=== PATIENT | male | born 1950 | race Caucasian/White ===

== ENCOUNTER 2018-01-31 17:26 | Emergency (ER) | payer MEDICARE, BC ==
[2018-01-31 17:46] VITALS: BP 62/33
[2018-01-31] MEDS ORDERED: Sodium Chloride 0.9% 1,000 ML IV ONE (17:59)
[2018-01-31] MEDS ORDERED: Sodium Chloride 0.9% 2,000 ML IV ONE (18:00)
[2018-01-31] MEDS ORDERED: Metoclopramide 10 MG/2 ML SDV IVPUSH ONE (18:01)
[2018-01-31] MEDS ORDERED: Piperacillin/Tazobactam/Dext 3.375 GM in Premix Bag 1 BAG IV ONE (18:27)
[2018-01-31] MEDS ORDERED: NS + KCl 20mEq/L 1,000 ML IV SCH (18:45)
[2018-01-31] MEDS ORDERED: Potassium Chloride 20 MEQ in Premix Bag 1 BAG IV ONE (18:45)
[2018-01-31] MEDS ORDERED: Morphine 2 MG/ML Syringe IVPUSH ONE (18:49)
--- NOTE | 2018-01-31 19:40 | EDM.PDOC ---
ED HPI GENERAL MEDICAL PROBLEM - General Chief Complaint: Abdominal Pain Stated Complaint: DEHYDRATED?? Time Seen by Provider: 01/31/18 17:35 Source of Information: Reports: Patient, Family, RN History Limitations: Reports: No Limitations - History of Present Illness INITIAL COMMENTS - FREE TEXT/NARRATIVE: 67-year-old male presents to the emergency room brought in by his with complaints of severe abdominal pain. He was diaphoretic and hypotensive upon arrival. He been complaining of severe abdominal pain over the last 48-72 hours. Reports the pain is sharp and diffuse and has severe pain with any type of movement. He has had nausea and vomiting over the last 48 hours. He has had some diarrhea today. He denies any fever or chills. He denies any blood in his stool or vomit. His pain is constant and progressive. He denies any shortness of breath or chest pain, he denies any headaches or syncopal episode. Past medical history is pertinent with hypertension, insulin-dependent diabetic and depression. He is a current smoker. He's had a prior cholecystectomy. He still has his appendix. His states that he has lost 20 pounds in the last year without trying. He's been having some stomach upset for the last 3 weeks but again this became severe the last 48-72 hours. Onset: Gradual Onset Date: 01/29/18 Duration: Day(s):, Getting Worse Location: Reports: Abdomen Quality: Reports: Stabbing Severity: Severe Improves with: Reports: None Worsens with: Reports: Movement Associated Symptoms: Reports: Diaphoresis, Loss of Appetite, Nausea/Vomiting, Weakness Abdominal Pain Score (Numeric/FACES): 7 - Related Data Allergies Allergy/AdvReac Type Severity Reaction Status Date / Time iodine Allergy Rash Verified 01/31/18 17:46 Home Meds: Home Meds metFORMIN HCl [Metformin HCl] 1 tab PO BID 09/18/14 [History] LORazepam [Ativan] 1 mg PO Q6H PRN 05/26/15 [History] Lisinopril 40 mg PO DAILY 05/26/15 [History] Hydrochlorothiazide 25 mg PO DAILY 01/19/16 [History] Escitalopram [Lexapro] 20 mg PO DAILY 01/31/18 [History] Insulin Detemir [Levemir Flextouch] 5 units SQ BEDTIME 01/31/18 [History] Past Medical History HEENT History: Reports: Cataract, Impaired Vision Other HEENT History: eye disease - pars plantis Cardiovascular History: Reports: High Cholesterol, Hypertension Respiratory History: Reports: Bronchitis, Recurrent Gastrointestinal History: Reports: Chronic Constipation, Hiatal Hernia Genitourinary History: Reports: Other (See Below) Other Genitourinary History: possible kidney stone but never got treatment Musculoskeletal History: Reports: Other (See Below) Other Musculoskeletal History: Right shoulder pain Psychiatric History: Reports: Anxiety Endocrine/Metabolic History: Reports: Diabetes, Type II Hematologic History: Reports: None - Infectious Disease History Infectious Disease History: Reports: Chicken Pox - Past Surgical History HEENT Surgical History: Reports: Cataract Surgery GI Surgical History: Reports: Hernia Repair/Other Musculoskeletal Surgical History: Reports: Carpal Tunnel Social & Family History - Family History Cardiac: Reports: High Cholesterol, Hypertension Oncologic: Reports: Brain, Breast ED ROS GENERAL - Review of Systems Review Of Systems: See Below Constitutional: Reports: Weakness, Diaphoresis HEENT: Reports: No Symptoms Respiratory: Reports: No Symptoms Cardiovascular: Reports: Blood Pressure Problem. Denies: Chest Pain, Palpitations Endocrine: Reports: High Glucose GI/Abdominal: Reports: Abdominal Pain, Diarrhea, Decreased Appetite, Nausea, Vomiting. Denies: Black Stool, Bloody Stool, Hematemesis : Denies: Flank Pain, Hematuria Musculoskeletal: Reports: No Symptoms Skin: Reports: Diaphoresis, Change in Color Neurological: Reports: No Symptoms Psychiatric: Reports: No Symptoms Hematologic/Lymphatic: Reports: No Symptoms Immunologic: Reports: No Symptoms ED EXAM, GI/ABD - Physical Exam Exam: See Below Exam Limited By: No Limitations General Appearance: Alert, WD/WN, Severe Distress Eyes: Bilateral: EOMI Ears: Hearing Grossly Normal Nose: Normal Inspection Throat/Mouth: Normal Voice, No Airway Compromise Head: Atraumatic Neck: Normal Inspection, Supple. No: Carotid Bruit Respiratory/Chest: No Respiratory Distress, Lungs Clear Cardiovascular: Regular Rate, Rhythm GI/Abdominal Exam: Guarding, Rigid, Rebound, Tender Back Exam: Normal Inspection Extremities: Normal Inspection, Slow Capillary Refill. No: Pedal Edema Neurological: Alert, Oriented, No Motor/Sensory Deficits Psychiatric: Anxious Skin Exam: Diaphoretic Lymphatic: No Adenopathy Course - Vital Signs Last Recorded V/S: Last Vital Signs Temp 95.8 F 01/31/18 17:41 Pulse 74 01/31/18 17:41 Resp 16 01/31/18 17:41 BP 62/33 L 01/31/18 17:41 Pulse Ox 93 L 01/31/18 17:41 - Orders/Labs/Meds Orders: Active Orders 24 hr Category Date Time Status Davies Catheter Insertion [Insert Urinary Catheter] [OM. Care 01/31/18 18:45 Ordered PC] Q24H Urinary Catheter Assessment [RC] ASDIRECTED Care 01/31/18 18:43 Active Abdomen Pelvis wo Cont [CT] Stat Exams 01/31/18 17:55 Taken CULTURE BLOOD [BC] Stat Lab 01/31/18 18:35 Ordered CULTURE BLOOD [BC] Stat Lab 01/31/18 18:45 Received NS + KCl 20mEq/L [Normal Saline with 20 mEq KCl] 1,000 Med 01/31/18 18:45 Active ml IV ASDIRECTED Potassium Chloride [KCL 20 MEQ in Water 100 ML] 20 meq Med 01/31/18 18:45 Active Premix Bag 1 bag IV ONETIME Vancomycin 1 gm Med 01/31/18 18:26 Active Sodium Chloride 0.9% [Normal Saline] 250 ml IV ONETIME Blood Culture x2 Reflex Set [OM.PC] Stat Oth 01/31/18 18:35 Ordered Medication Orders Vancomycin HCl 1 gm/ Sodium (Chloride) 250 mls @ 167 mls/hr IV ONETIME ONE Stop: 01/31/18 19:55 Last Admin: 01/31/18 19:00 Dose: 167 mls/hr Potassium Chloride/Sodium Chloride (Normal Saline With 20 Meq Kcl) 1,000 mls @ 150 mls/hr IV ASDIRECTED FELICIA Potassium Chloride 20 meq/ (Premix) 100 mls @ 50 mls/hr IV ONETIME ONE Stop: 01/31/18 20:44 Labs: Laboratory Tests 01/31/18 01/31/18 01/31/18 Range/Units 17:33 17:33 17:33 WBC 19.4 H (5.0-10.0) 10^3/uL RBC 5.14 (4.50-6.00) 10^6/uL Hgb 14.9 (13.0-17.0) g/dL Hct 43.8 (40.0-52.0) % MCV 85.2 (82.0-92.0) fL MCH 29.0 (27.0-31.0) pg MCHC 34.0 (32.0-36.0) g/dL RDW 12.7 (11.5-14.5) % Plt Count 384 H (150-300) 10^3/uL MPV 8.5 (7.4-10.4) fL Neut % (Auto) 81.0 H (50.0-70.0) % Lymph % (Auto) 9.8 L (20.0-40.0) % [place] % (Auto) 8.8 H (2.0-8.0) % Eos % (Auto) 0.2 L (1.0-3.0) % Baso % (Auto) 0.2 (0.0-1.0) % Neut # (Auto) 15.8 H (2.5-7.0) 10^3/uL Lymph # (Auto) 1.9 (1.0-4.0) 10^3/uL [place] # (Auto) 1.7 H (0.1-0.8) 10^3/uL Eos # (Auto) 0.0 L (0.1-0.3) 10^3/uL Baso # (Auto) 0.0 (0.0-0.1) 10^3/uL ESR 21 H (0-15) mm/hr Sodium 142 (136-145) mmol/L Potassium 2.8 L (3.3-5.3) mmol/L Chloride 98 (98-115) mmol/L Carbon Dioxide 32.4 H (21.0-32.0) mmol/L BUN 35 H (6-25) mg/dL Creatinine 2.35 H (0.51-1.17) mg/dL Est Cr Clr Drug Dosing 28.28 mL/min Estimated GFR (MDRD) 28 mL/min Glucose 204 H (70-110) mg/dL Lactic Acid (0.4-2.0) mmol/L Calcium 10.6 H (8.7-10.3) mg/dL Creatine Kinase 144 (26-276) U/L CK-MB (CK-2) 0.70 (0.00-4.30) ng/mL Troponin I 0.06 (0.00-0.070) ng/mL Amylase 63 (25-125) U/L Lipase 135 (73-393) U/L Specimen Type Urine Color (YELLOW) Urine Appearance (CLEAR) Urine pH (5.0-9.0) Ur Specific [place] (1.005-1.030) Urine Protein (NEGATIVE) mg/dL Urine Glucose (UA) (NEGATIVE) mg/dL Urine Ketones (NEGATIVE) mg/dL Urine Occult Blood (NEGATIVE) Urine Nitrite (NEGATIVE) Urine Bilirubin (NEGATIVE) Urine Urobilinogen (0.2-1.0) E.U./dL Ur Leukocyte Esterase (NEGATIVE) Urine RBC /HPF Urine WBC /HPF Ur Epithelial Cells /LPF Urine Bacteria (NONE TO FEW) /HPF Hyaline Casts (NEGATIVE) /LPF Urine Mucus (NEGATIVE) /LPF Urine Other 01/31/18 01/31/18 Range/Units 17:33 18:45 WBC (5.0-10.0) 10^3/uL RBC (4.50-6.00) 10^6/uL Hgb (13.0-17.0) g/dL Hct (40.0-52.0) % MCV (82.0-92.0) fL MCH (27.0-31.0) pg MCHC (32.0-36.0) g/dL RDW (11.5-14.5) % Plt Count (150-300) 10^3/uL MPV (7.4-10.4) fL Neut % (Auto) (50.0-70.0) % Lymph % (Auto) (20.0-40.0) % [place] % (Auto) (2.0-8.0) % Eos % (Auto) (1.0-3.0) % Baso % (Auto) (0.0-1.0) % Neut # (Auto) (2.5-7.0) 10^3/uL Lymph # (Auto) (1.0-4.0) 10^3/uL [place] # (Auto) (0.1-0.8) 10^3/uL Eos # (Auto) (0.1-0.3) 10^3/uL Baso # (Auto) (0.0-0.1) 10^3/uL ESR (0-15) mm/hr Sodium (136-145) mmol/L Potassium (3.3-5.3) mmol/L Chloride (98-115) mmol/L Carbon Dioxide (21.0-32.0) mmol/L BUN (6-25) mg/dL Creatinine (0.51-1.17) mg/dL Est Cr Clr Drug Dosing mL/min Estimated GFR (MDRD) mL/min Glucose (70-110) mg/dL Lactic Acid 5.4 H (0.4-2.0) mmol/L Calcium (8.7-10.3) mg/dL Creatine Kinase (26-276) U/L CK-MB (CK-2) (0.00-4.30) ng/mL Troponin I (0.00-0.070) ng/mL Amylase (25-125) U/L Lipase (73-393) U/L Specimen Type Urincc Urine Color Yellow (YELLOW) Urine Appearance Clear (CLEAR) Urine pH 7.0 (5.0-9.0) Ur Specific [place] 1.020 (1.005-1.030) Urine Protein 100 H (NEGATIVE) mg/dL Urine Glucose (UA) Negative (NEGATIVE) mg/dL Urine Ketones Trace H (NEGATIVE) mg/dL Urine Occult Blood Trace-intact H (NEGATIVE) Urine Nitrite Negative (NEGATIVE) Urine Bilirubin Small H (NEGATIVE) Urine Urobilinogen 0.2 (0.2-1.0) E.U./dL Ur Leukocyte Esterase Negative (NEGATIVE) Urine RBC 5-10 H /HPF Urine WBC 0-5 /HPF Ur Epithelial Cells Not seen /LPF Urine Bacteria Occasional (NONE TO FEW) /HPF Hyaline Casts Few H (NEGATIVE) /LPF Urine Mucus Occasional H (NEGATIVE) /LPF Urine Other Meds: Medications Generic Name Dose Route Start Last Admin Trade Name Freq PRN Reason Stop Dose Admin Vancomycin HCl 1 gm/ Sodium 250 mls @ 167 mls/hr 01/31/18 18:26 01/31/18 19: 00 Chloride IV 01/31/18 19:55 167 mls/hr ONETIME ONE Administration Potassium Chloride/Sodium Chloride 1,000 mls @ 150 mls/hr 01/31/18 18:45 Normal Saline With 20 Meq Kcl IV ASDIRECTED FELICIA Potassium Chloride 20 meq/ 100 mls @ 50 mls/hr 01/31/18 18:45 Premix IV 01/31/18 20:44 ONETIME ONE Discontinued Medications Generic Name Dose Route Start Last Admin Trade Name Shruthi PRN Reason Stop Dose Admin Sodium Chloride 1,000 mls @ 2,000 mls/hr 01/31/18 17:59 01/31/18 17:33 Normal Saline IV 01/31/18 18:28 2,000 mls/hr .BOLUS ONE Administration Piperacillin/Tazobactam/ 50 mls @ 100 mls/hr 01/31/18 18:27 Dextrose 3.375 gm/ Premix IV 01/31/18 18:56 ONETIME ONE Metoclopramide HCl 10 mg 01/31/18 18:01 01/31/18 19:04 Reglan IVPUSH 01/31/18 18:02 10 mg ONETIME ONE Administration Morphine Sulfate 2 mg 01/31/18 18:49 01/31/18 19:04 Morphine IVPUSH 01/31/18 18:50 1 mg ONETIME ONE Administration - Radiology Interpretation Free Text/Narrative:: 1. Small volume free air free fluid compatible with a perforated viscus. Suggested perforated distal gastric ulcer. 2. Mild ileus with moderate gastric distention and mild small bowel dilation. CT Results Date: 01/31/18 CT Results Time: 17:00 - Re-Assessments/Exams Free Text/Narrative Re-Assessment/Exam: 01/31/18 19:46 2 liter of fluids on pressure bag given. Patients BP improved to 110/54. Patient 's diaphoresis resolved. Abdominal pain remained a 7 out of 10. He was given 1 mg IV morphine. 2 L of O2 nasal cannula was placed. He was given 1 mg of vancomycin after blood cultures were obtained. Zosyn and KCL were ordered. Patient's clothes were removed Davies was placed for close IO monitoring. Radiologist called regarding free air-fluid compatible with a perforated viscera 's suggestion of a perforated distal gastric ulcer. Transfer was already in route at this time and helicopter was in air. Patient's blood pressure remained stable although his condition was severe. Departure - Departure Time of Disposition: 19:30 Disposition: DC/Tfer to [facility] Clinical Impression: Perforated abdominal viscus Sepsis Qualifiers: Sepsis type: sepsis due to unspecified organism Qualified Code(s): A41.9 - Sepsis, unspecified organism - Discharge Information Instructions: Peptic Ulcer, Abdominal Pain, Adult Referrals: [place] Ch[place] MD [Primary Care Provider] - Forms: ED Department Discharge, Interfacility Transfer EMTALA - My Orders Last 24 Hours: My Active Orders 01/31/18 17:55 Abdomen Pelvis wo Cont [CT] Stat 01/31/18 18:26 Vancomycin 1 gm Sodium Chloride 0.9% [Normal Saline] 250 ml IV ONETIME 01/31/18 18:35 CULTURE BLOOD [BC] Stat Blood Culture x2 Reflex Set [OM.PC] Stat 01/31/18 18:43 Urinary Catheter Assessment [RC] ASDIRECTED 01/31/18 18:45 Davies Catheter Insertion [Insert Urinary Catheter] [OM.PC] Q24H CULTURE BLOOD [BC] Stat NS + KCl 20mEq/L [Normal Saline with 20 mEq KCl] 1,000 ml IV ASDIRECTED Potassium Chloride [KCL 20 MEQ in Water 100 ML] 20 meq Premix Bag 1 bag IV ONETIME - Assessment/Plan Last 24 Hours: My Active Orders 01/31/18 17:55 Abdomen Pelvis wo Cont [CT] Stat 01/31/18 18:26 Vancomycin 1 gm Sodium Chloride 0.9% [Normal Saline] 250 ml IV ONETIME 01/31/18 18:35 CULTURE BLOOD [BC] Stat Blood Culture x2 Reflex Set [OM.PC] Stat 01/31/18 18:43 Urinary Catheter Assessment [RC] ASDIRECTED 01/31/18 18:45 Davies Catheter Insertion [Insert Urinary Catheter] [OM.PC] Q24H CULTURE BLOOD [BC] Stat NS + KCl 20mEq/L [Normal Saline with 20 mEq KCl] 1,000 ml IV ASDIRECTED Potassium Chloride [KCL 20 MEQ in Water 100 ML] 20 meq Premix Bag 1 bag IV ONETIME Assessment:: 1. Acute abdomen. 2. Free air compatible with a perforated viscus probable perforated distal gastric ulcer 3. Sepsis 4. Mild ileus with moderate gastric distention and mild small bowel dilation. Plan: 1. Patient was transferred by air to [facility]. Blood pressures were stable condition was still serious. 2 IV were placed. He had a total of 2 L of normal saline run in a pressure bag. He was given 1 g of vancomycin and was to be started on potassium replacement KCL 20 mEq. Zosyn 3.375 mg was ordered. Davies was placed for close INR monitoring and the patient is closed were removed he was Warm with a blanket patient was stable at time of transfer by helicopter to [place].
== END 2018-01-31 19:40 | disposition critical access hospital (66) ==
LOC: KA.ED 17:26
DX: A41.9 Sepsis, unspecified organism (principal); K63.1 Perforation of intestine (nontraumatic); E11.9 Type 2 diabetes mellitus without complications; E78.00 Pure hypercholesterolemia, unspecified; I10 Essential (primary) hypertension; Z91.048 Other nonmedicinal substance allergy status; Z79.4 Long term (current) use of insulin; Z79.899 Other long term (current) drug therapy
CPT/HCPCS: 36415; 51702; 74176; 80048; 81001; 82150; 82550; 82553; 83605; 83690; 84484; 85025; 85651; 87040; 96361; 96365; 96375; 99285; J2270; J2765; J3370; J7030; J7050

== ENCOUNTER 2021-03-21 10:28 | Inpatient (IN) | payer MEDICARE, BC ==
[2021-03-21] MEDS ORDERED: Sodium Chloride 0.9% 10 ML Syringe FLUSH PRN (10:32)
[2021-03-21] MEDS ORDERED: Sodium Chloride 0.9% 1,000 ML IV ONE (10:32)
[2021-03-21] MEDS ORDERED: Acetaminophen 500 MG Tab PO ONE (10:40)
--- NOTE | 2021-03-21 10:40 | EDM.PDOC ---
ED HPI GENERAL MEDICAL PROBLEM - General Chief Complaint: Respiratory Problem Stated Complaint: CHEST PAIN,COUGH,FEVER,CHILLS Time Seen by Provider: 03/21/21 10:28 Source of Information: Reports: Patient, Family History Limitations: Reports: No Limitations - History of Present Illness INITIAL COMMENTS - FREE TEXT/NARRATIVE: 70 YO WM PRESENTS TO ER COMPLAINING OF FEVER/CHILLS, COUGH/CONGESTION AND INTERMITTENT CHEST PAIN AND SHORTNESS OF BREATH WHICH BEGAN 2.5 WEEKS AGO. PT REPORTS HE CAME TO ER TODAY DUE TO HIS URGING HIM TO DO SO. PT REPORTS PRODUCTIVE COUGH WITHOUT HEMOPTYSIS. PT REPORTS NO KNOWN COVID EXPOSURES AND HAS BEEN IMMUNIZED EARLIER THIS YEAR. PT REPORTS BILATERAL INTERMITTENT CHEST PAIN AND ASSOCIATED DYSPNEA. PT DENIES NAUSEA/VOMITING. PT REPORTS DECREASED APPETITE BUT HAS BEEN DRINKING FLUIDS WITHOUT DIFFICULTY. PT IS IDDM AND HASN'T CHECKED HIS BLOOD SUGAR IN 2 DAYS. 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 Chest Pain Score (Numeric/FACES): 6 - Related Data Allergies Allergy/AdvReac Type Severity Reaction Status Date / Time iodine Allergy Rash Verified 03/21/21 11:39 Home Meds: Home Meds metFORMIN HCl [Metformin HCl] 1 tab PO BID 09/18/14 [History] LORazepam [Ativan] 1 mg PO Q6H PRN 05/26/15 [History] Lisinopril 40 mg PO DAILY 05/26/15 [History] Hydrochlorothiazide 25 mg PO DAILY 01/19/16 [History] Escitalopram [Lexapro] 20 mg PO DAILY 01/31/18 [History] Insulin Detemir [Levemir Flextouch] 5 units SQ BEDTIME 01/31/18 [History] Past Medical History HEENT History: Reports: Cataract, Impaired Vision Other HEENT History: eye disease - pars plantis Cardiovascular History: Reports: High Cholesterol, Hypertension Respiratory History: Reports: Bronchitis, Recurrent Gastrointestinal History: Reports: Chronic Constipation, Hiatal Hernia Genitourinary History: Reports: Other (See Below) Other Genitourinary History: possible kidney stone but never got treatment Musculoskeletal History: Reports: Other (See Below) Other Musculoskeletal History: Right shoulder pain Psychiatric History: Reports: Anxiety Endocrine/Metabolic History: Reports: Diabetes, Type II Hematologic History: Reports: None - Infectious Disease History Infectious Disease History: Reports: Chicken Pox - Past Surgical History HEENT Surgical History: Reports: Cataract Surgery GI Surgical History: Reports: Hernia Repair/Other Musculoskeletal Surgical History: Reports: Carpal Tunnel Social & Family History - Family History Cardiac: Reports: High Cholesterol, Hypertension Oncologic: Reports: Brain, Breast ED ROS GENERAL - Review of Systems Review Of Systems: See Below Constitutional: Reports: Fever, Chills, Malaise, Weakness, Decreased Appetite HEENT: Reports: No Symptoms Respiratory: Reports: Shortness of Breath, Cough Cardiovascular: Reports: Chest Pain Endocrine: Reports: No Symptoms GI/Abdominal: Reports: No Symptoms : Reports: No Symptoms Musculoskeletal: Reports: No Symptoms Skin: Reports: No Symptoms Neurological: Reports: No Symptoms Psychiatric: Reports: No Symptoms Hematologic/Lymphatic: Reports: No Symptoms Immunologic: Reports: No Symptoms ED EXAM, GENERAL - Physical Exam Exam: See Below Exam Limited By: No Limitations General Appearance: Alert, WD/WN, Mild Distress Eye Exam: Bilateral Eye: EOMI, PERRL Ears: Normal External Exam, Normal Canal, Hearing Grossly Normal, Normal TMs Nose: Normal Inspection, Normal Mucosa, No Blood Throat/Mouth: Normal Inspection, Normal Lips, Normal Teeth, Normal Gums, Normal Oropharynx, Normal Voice, No Airway Compromise Head: Atraumatic, Normocephalic Neck: Normal Inspection, Supple, Non-Tender, Full Range of Motion Respiratory/Chest: No Respiratory Distress, No Accessory Muscle Use, Chest Non- Tender, Rhonchi Cardiovascular: Normal Peripheral Pulses, Regular Rate, Rhythm, No Edema, No Gallop, No JVD, No Murmur, No Rub GI/Abdominal: Normal Bowel Sounds, Soft, Non-Tender, No Organomegaly, No Distention, No Abnormal Bruit, No Mass Back Exam: Normal Inspection, Full Range of Motion, NT Extremities: Normal Inspection, Normal Range of Motion, Non-Tender, Normal Capillary Refill, No Pedal Edema Neurological: Alert, Oriented, CN II-XII Intact, Normal Cognition, Normal Gait, No Motor/Sensory Deficits Psychiatric: Normal Affect, Normal Mood Skin Exam: Warm, Dry, Intact, Normal Color, No Rash Lymphatic: No Adenopathy #1 Interpretation EKG Date: 03/21/21 Time: 10:40 Rhythm: NSR Rate (Beats/Min): 121 [place]: Normal P-Wave: Present QRS: Normal ST-T: Normal QT: Normal Course - Vital Signs Last Recorded V/S: Last Vital Signs Temp 101.5 F H 03/21/21 12:00 Pulse 114 H 03/21/21 12:00 Resp 20 03/21/21 12:00 BP 126/62 03/21/21 12:00 Pulse Ox 93 L 03/21/21 12:00 - Orders/Labs/Meds Orders: Active Orders 24 hr Category Date Time Status Accu Check [Blood Glucose Check, Bedside] [RC] ONETIME Care 03/21/21 10:45 Active Blood Pressure Mgt: Sepsis [RC] Q15MX2 Care 03/21/21 10:33 Active EKG Documentation Completion [RC] ASDIRECTED Care 03/21/21 10:33 Active RT Aerosol Therapy [RC] ASDIRECTED Care 03/21/21 11:41 Active CULTURE BLOOD [BC] Stat Lab 03/21/21 10:45 Received CULTURE BLOOD [BC] Stat Lab 03/21/21 10:55 Received Sodium Chloride 0.9% [Saline Flush] Med 03/21/21 10:32 Active 10 ml FLUSH Q8HR PRN Blood Culture x2 Reflex Set [OM.PC] Stat Oth 03/21/21 10:32 Ordered Saline Lock Insert [OM.PC] Stat Oth 03/21/21 10:32 Ordered Severe Sepsis Onset Time [OM.PC] Stat Oth 03/21/21 10:32 Ordered EKG 12 Lead [EK] Stat Ther 03/21/21 10:32 Ordered Medication Orders Sodium Chloride (Sodium Chloride 0.9% 10 Ml Syringe) 10 ml FLUSH Q8HR PRN PRN Reason: keep vein open Labs: Laboratory Tests 03/21/21 03/21/21 03/21/21 Range/Units 10:32 10:45 10:45 WBC 19.17 H (5.00-10.00) 10^3/uL RBC 4.73 (4.50-6.00) 10^6/uL Hgb 12.9 L D (13.0-17.0) g/dL Hct 39.2 L (40.0-52.0) % MCV 82.9 (82.0-92.0) fL MCH 27.3 (27.0-31.0) pg MCHC 32.9 (32.0-36.0) g/dL RDW 13.2 (11.5-14.5) % Plt Count 516 H D (150-400) 10^3/uL MPV 8.9 (7.4-10.4) fL Immature Gran % (Auto) 1.3 (0.0-5.0) % Neut % (Auto) 83.4 H (50.0-70.0) % Lymph % (Auto) 7.8 L (20.0-40.0) % [place] % (Auto) 7.2 (2.0-8.0) % Eos % (Auto) 0.1 L (1.0-3.0) % Baso % (Auto) 0.2 (0.0-1.0) % Neut # (Auto) 16.00 H (2.50-7.00) 10^3/uL Lymph # (Auto) 1.50 (1.00-4.00) 10^3/uL Perry # (Auto) 1.38 H (0.10-0.80) 10^3/uL Eos # (Auto) 0.01 L (0.10-0.30) 10^3/uL Baso # (Auto) 0.04 (0.00-0.10) 10^3/uL Immature Gran # (Auto) 0.24 (0.00-0.50) 10^3/uL Sodium 139 (136-145) mmol/L Potassium 3.2 L (3.5-5.1) mmol/L Chloride 99 (98-107) mmol/L Carbon Dioxide 26.4 (21.0-32.0) mmol/L Anion Gap 16.8 H (5-15) mmol/L BUN 39 H D (7-18) mg/dL Creatinine 1.85 H (0.51-1.17) mg/dL Est Cr Clr Drug Dosing 34.49 mL/min Estimated GFR (MDRD) 37 mL/min Glucose 78 (70-140) mg/dL Lactic Acid (0.4-2.0) mmol/L Calcium 8.5 L (8.7-10.3) mg/dL Total Bilirubin 0.3 (0.2-1.0) mg/dL AST 43 H (15-37) U/L ALT 53 (14-63) U/L Alkaline Phosphatase 101 (46-116) U/L Troponin I High Sens 9.500 (0-76.000) pg/mL Total Protein 8.3 H (6.4-8.2) g/dL Albumin 2.57 L (3.40-5.00) g/dL Specimen Type Urinvoid Urine Color Yellow (YELLOW) Urine Appearance Slightly cloudy H (CLEAR) Urine pH 5.5 (5.0-9.0) Ur Specific [place] >= 1.030 (1.005-1.030) Urine Protein >=300 H (NEGATIVE) mg/dL Urine Glucose (UA) Negative (NEGATIVE) mg/dL Urine Ketones Trace H (NEGATIVE) mg/dL Urine Occult Blood Small H (NEGATIVE) Urine Nitrite Negative (NEGATIVE) Urine Bilirubin Small H (NEGATIVE) Urine Urobilinogen 0.2 (0.2-1.0) E.U./dL Ur Leukocyte Esterase Negative (NEGATIVE) Urine RBC 0-5 (0-5) /HPF Urine WBC 0-5 (0-5) /HPF Ur Epithelial Cells Few /LPF Amorphous Sediment Many H (0/HPF) /HPF Urine Bacteria Rare (NONE TO FEW) /HPF Granular Casts (Auto) Few SARS CoV-2 RNA Rapid PASTORA (NEGATIVE) 03/21/21 03/21/21 Range/Units 10:45 10:55 WBC (5.00-10.00) 10^3/uL RBC (4.50-6.00) 10^6/uL Hgb (13.0-17.0) g/dL Hct (40.0-52.0) % MCV (82.0-92.0) fL MCH (27.0-31.0) pg MCHC (32.0-36.0) g/dL RDW (11.5-14.5) % Plt Count (150-400) 10^3/uL MPV (7.4-10.4) fL Immature Gran % (Auto) (0.0-5.0) % Neut % (Auto) (50.0-70.0) % Lymph % (Auto) (20.0-40.0) % [place] % (Auto) (2.0-8.0) % Eos % (Auto) (1.0-3.0) % Baso % (Auto) (0.0-1.0) % Neut # (Auto) (2.50-7.00) 10^3/uL Lymph # (Auto) (1.00-4.00) 10^3/uL [place] # (Auto) (0.10-0.80) 10^3/uL Eos # (Auto) (0.10-0.30) 10^3/uL Baso # (Auto) (0.00-0.10) 10^3/uL Immature Gran # (Auto) (0.00-0.50) 10^3/uL Sodium (136-145) mmol/L Potassium (3.5-5.1) mmol/L Chloride (98-107) mmol/L Carbon Dioxide (21.0-32.0) mmol/L Anion Gap (5-15) mmol/L BUN (7-18) mg/dL Creatinine (0.51-1.17) mg/dL Est Cr Clr Drug Dosing mL/min Estimated GFR (MDRD) mL/min Glucose (70-140) mg/dL Lactic Acid 1.6 (0.4-2.0) mmol/L Calcium (8.7-10.3) mg/dL Total Bilirubin (0.2-1.0) mg/dL AST (15-37) U/L ALT (14-63) U/L Alkaline Phosphatase (46-116) U/L Troponin I High Sens (0-76.000) pg/mL Total Protein (6.4-8.2) g/dL Albumin (3.40-5.00) g/dL Specimen Type Urine Color (YELLOW) Urine Appearance (CLEAR) Urine pH (5.0-9.0) Ur Specific [place] (1.005-1.030) Urine Protein (NEGATIVE) mg/dL Urine Glucose (UA) (NEGATIVE) mg/dL Urine Ketones (NEGATIVE) mg/dL Urine Occult Blood (NEGATIVE) Urine Nitrite (NEGATIVE) Urine Bilirubin (NEGATIVE) Urine Urobilinogen (0.2-1.0) E.U./dL Ur Leukocyte Esterase (NEGATIVE) Urine RBC (0-5) /HPF Urine WBC (0-5) /HPF Ur Epithelial Cells /LPF Amorphous Sediment (0/HPF) /HPF Urine Bacteria (NONE TO FEW) /HPF Granular Casts (Auto) SARS CoV-2 RNA Rapid PASTORA Negative (NEGATIVE) Meds: Medications Generic Name Dose Route Start Last Admin Trade Name Freq PRN Reason Stop Dose Admin Sodium Chloride 10 ml 03/21/21 10:32 Sodium Chloride 0.9% 10 Ml Syringe FLUSH Q8HR PRN keep vein open Discontinued Medications Generic Name Dose Route Start Last Admin Trade Name Freq PRN Reason Stop Dose Admin Acetaminophen 1,000 mg 03/21/21 10:40 03/21/21 11:18 Acetaminophen 500 Mg Tab PO 03/21/21 10:41 1,000 mg ONETIME ONE Administration Albuterol/Ipratropium 3 ml 03/21/21 11:41 03/21/21 11:49 Albuterol/Ipratropium 3.0-0.5 Mg/3 Ml Neb Soln NEB 03/21/21 11:42 3 ml ONETIME ONE Administration Ceftriaxone Sodium 1 gm 03/21/21 11:27 03/21/21 11:48 Ceftriaxone 1 Gm Vial IVPUSH 03/21/21 11:28 1 gm ONETIME ONE Administration Sodium Chloride 1,000 mls @ 1,000 mls/hr 03/21/21 10:32 03/21/21 11:27 Normal Saline IV 03/21/21 11:31 1,000 mls/hr BOLUS ONE Administration Protocol - Radiology Interpretation Free Text/Narrative:: CXR-LEFT UPPER LUNG OPACIFICATION CONSISTENT WITH PNEUMONIA - Re-Assessments/Exams Free Text/Narrative Re-Assessment/Exam: 03/21/21 12:06 PT REPORTS FEELING MUCH BETTER AFTER SUPPLEMENTAL O2, TYLENOL AND FLUIDS. WILL ADMIT FOR PNEUMONIA MANAGEMENT AND SUPPORTIVE CARE Departure - Departure Time of Disposition: 12:02 Disposition: Admitted As Inpatient 68 Condition: Serious Clinical Impression: Hypoxemia Pneumonia Qualifiers: Pneumonia type: due to unspecified organism Laterality: left Lung location: upper lobe of lung Qualified Code(s): J18.9 - Pneumonia, unspecified organism - Discharge Information Referrals: Paige Frost MD [Primary Care Provider] - Forms: ED Department Discharge Sepsis Event Note (ED) - Focused Exam Vital Signs: Vital Signs Temp Temp Pulse Resp BP Pulse Ox 03/21/21 12:00 101.5 F H 114 H 20 126/62 93 L 03/21/21 11:48 101.7 F H 03/21/21 11:41 114 H 03/21/21 11:37 117 H 94 L 03/21/21 11:36 90 L 03/21/21 11:30 101.4 F H 120 H 29 H 134/69 93 L 03/21/21 11:18 101.6 F H 03/21/21 11:15 123 H 28 H 128/61 94 L 03/21/21 10:55 101.6 F H 123 H 33 H 173/83 H 94 L - My Orders Last 24 Hours: My Active Orders 03/21/21 10:32 Sodium Chloride 0.9% [Saline Flush] 10 ml FLUSH Q8HR PRN Blood Culture x2 Reflex Set [OM.PC] Stat Saline Lock Insert [OM.PC] Stat Severe Sepsis Onset Time [OM.PC] Stat EKG 12 Lead [EK] Stat 03/21/21 10:33 Blood Pressure Mgt: Sepsis [RC] Q15MX2 EKG Documentation Completion [RC] ASDIRECTED 03/21/21 10:45 Accu Check [Blood Glucose Check, Bedside] [RC] ONETIME CULTURE BLOOD [BC] Stat 03/21/21 10:55 CULTURE BLOOD [BC] Stat 03/21/21 11:41 RT Aerosol Therapy [RC] ASDIRECTED - Assessment/Plan Admission H&P: Please use this note as an admission H&P Last 24 Hours: My Active Orders 03/21/21 10:32 Sodium Chloride 0.9% [Saline Flush] 10 ml FLUSH Q8HR PRN Blood Culture x2 Reflex Set [OM.PC] Stat Saline Lock Insert [OM.PC] Stat Severe Sepsis Onset Time [OM.PC] Stat EKG 12 Lead [EK] Stat 03/21/21 10:33 Blood Pressure Mgt: Sepsis [RC] Q15MX2 EKG Documentation Completion [RC] ASDIRECTED 03/21/21 10:45 Accu Check [Blood Glucose Check, Bedside] [RC] ONETIME CULTURE BLOOD [BC] Stat 03/21/21 10:55 CULTURE BLOOD [BC] Stat 03/21/21 11:41 RT Aerosol Therapy [RC] ASDIRECTED Assessment:: 1. COMMUNITY ACQUIRED PNEUMONIA 2. HYPOXEMIA Plan: 1. ADMIT TO MEDICINE- DR PAIGE CLINE-ACCEPTED AT 1145AM 2. SUPPLEMENTAL O2 3. DUONEB TX Q4 AND PRN 4. ROCEPHIN 1G IV QD 5. ZITHROMAX 500MG IV QD 6. SUPPORTIVE CARE
--- NOTE | 2021-03-21 11:23 | CR ---
[id number] RAD/RAD Chest PA or AP 1V EXAM: RAD Chest PA or AP 1V INDICATION: COUGH. COMPARISON: June 2020. DISCUSSION/IMPRESSION: Patchy areas of somewhat nodular appearing parenchymal opacification in the left mid and upper lung. Findings were not seen previously. Findings could represent pneumonia. Correlate for signs of infection. CT examination of the chest with intravenous contrast is recommended to exclude other underlying pathology such as neoplasm. If there is contraindication to intravenous contrast, noncontrast chest CT would also be of benefit. Right lung is clear. Heart is normal in size. Moe Kan MD 03/21/21 1121 Thank you for allowing us to participate in the care of your patient.
[2021-03-21] MEDS ORDERED: cefTRIAXone 1 GM Vial IVPUSH ONE (11:27)
[2021-03-21] MEDS ORDERED: Albuterol/Ipratropium 3.0-0.5 MG/3 ML Neb Soln NEB ONE (11:41)
[2021-03-21 11:55] LABS: ANION GAP 16.8 mmol/L (5-15)
[2021-03-21] MEDS ORDERED: Albuterol/Ipratropium 3.0-0.5 MG/3 ML Neb Soln NEB PRN (12:08)
[2021-03-21] MEDS ORDERED: Acetaminophen 325 MG Tab PO PRN (12:08)
[2021-03-21] MEDS ORDERED: Sodium Chloride 0.9% 100 ML IV SCH (13:15)
[2021-03-21] MEDS: Azithromycin 500 MG in Sodium Chloride 0.9% 250 ML IV SCH (13:25)
[2021-03-21] MEDS ORDERED: 50% Dextrose in Water 50 ML Syringe IVPUSH PRN (15:37)
[2021-03-21] MEDS ORDERED: Glucagon,Human Recombinant 1 MG Vial IM PRN (15:37)
[2021-03-21] MEDS ORDERED: Non-Formulary Medication 1 Each (Lorazepam [Ativan] 1 MG Tablet) PO PRN (16:16)
[2021-03-21] MEDS ORDERED: Non-Formulary Medication 1 Each (Nicotine Polacrilex [Nicotine Lozenge] 2 MG Lozenge) BC SCH (16:30)
[2021-03-21] MEDS ORDERED: NICOTINE POLACRILEX 2 MG PO PRN (16:47)
[2021-03-21] MEDS: metFORMIN 500 MG Tab PO SCH (17:00)
[2021-03-21] MEDS: LORazepam 0.5 MG Tab PO SCH (17:40)
[2021-03-21] MEDS: Insulin Aspart 100 Units/ML 3 ML Pen SUBCUT SCH ×2 (17:42→21:05)
[2021-03-21] MEDS: Insulin Glargine,Human Rec. Analog 100 Units/ML 3 ML Pen SUBCUT SCH (20:56)
[2021-03-21] MEDS: Rosuvastatin 10 MG Tab PO SCH (20:56)
[2021-03-22] MEDS: metFORMIN 500 MG Tab PO SCH ×2 (08:09→11:26)
[2021-03-22] MEDS: Cyanocobalamin (Vitamin B12) 500 MCG Tab PO SCH (08:09)
[2021-03-22] MEDS: LORazepam 0.5 MG Tab PO SCH ×3 (08:10→17:19)
[2021-03-22] MEDS: Lisinopril 20 MG Tab PO SCH (08:11)
[2021-03-22] MEDS: Hydrochlorothiazide 25 MG Tab PO SCH (08:13)
[2021-03-22] MEDS: Insulin Aspart 100 Units/ML 3 ML Pen SUBCUT SCH ×4 (08:13→21:02)
[2021-03-22 08:22] LABS: ANION GAP 15.6 mmol/L (5-15)
[2021-03-22] MEDS ORDERED: LIRAGLUTIDE 18 MG/3 ML SUBCUT SCH ×2 (09:00→20:00)
--- NOTE | 2021-03-22 10:26 | PCM.PN ---
- General Info Date of Service: 03/22/21 Admission Dx/Problem (Free Text): COMMUNITY ACQUIRED PNEUMONIA Subjective Update: PT REPORTS NO CHANGE IN BREATHING TODAY. PT REPORTS CHEST PAIN HAS RESOLVED. PT WITH SOME LOOSE STOOLS THIS AM BUT STATES THIS IS NORMAL FOR HIM. PT WITHOUT COMPLAINTS. PT ABLE TO EAT BREAKFAST AND STATES HE HAS SOME APPETITE BUT STILL DECREASED Functional Status: Reports: Pain Controlled, Tolerating Diet, Ambulating, Urinating, Incentive Spirometry - Review of Systems General: Reports: Malaise, Appetite HEENT: Reports: No Symptoms Pulmonary: Reports: Shortness of Breath, Cough, Sputum Cardiovascular: Reports: No Symptoms Gastrointestinal: Reports: Decreased Appetite, Diarrhea Genitourinary: Reports: No Symptoms Musculoskeletal: Reports: No Symptoms Skin: Reports: No Symptoms Neurological: Reports: No Symptoms Psychiatric: Reports: No Symptoms - Patient Data Vitals - Most Recent: Last Vital Signs Temp 99.2 F 03/22/21 06:24 Pulse 111 H 03/22/21 06:24 Resp 28 H 03/22/21 06:24 BP 134/68 03/22/21 08:11 Pulse Ox 93 L 03/22/21 06:24 Weight - Most Recent: 191 lb 11.2 oz I&O - Last 24 Hours: Intake & Output 03/21/21 03/22/21 03/22/21 22:59 06:59 14:59 Intake Total 320 150 Balance 320 150 Lab Results Last 24 Hours: Laboratory Results - last 24 hr 03/21/21 03/21/21 03/21/21 Range/Units 10:32 10:45 10:45 WBC 19.17 H (5.00-10.00) 10^3/uL RBC 4.73 (4.50-6.00) 10^6/uL Hgb 12.9 L D (13.0-17.0) g/dL Hct 39.2 L (40.0-52.0) % MCV 82.9 (82.0-92.0) fL MCH 27.3 (27.0-31.0) pg MCHC 32.9 (32.0-36.0) g/dL RDW 13.2 (11.5-14.5) % Plt Count 516 H D (150-400) 10^3/uL MPV 8.9 (7.4-10.4) fL Immature Gran % (Auto) 1.3 (0.0-5.0) % Neut % (Auto) 83.4 H (50.0-70.0) % Lymph % (Auto) 7.8 L (20.0-40.0) % [place] % (Auto) 7.2 (2.0-8.0) % Eos % (Auto) 0.1 L (1.0-3.0) % Baso % (Auto) 0.2 (0.0-1.0) % Neut # (Auto) 16.00 H (2.50-7.00) 10^3/uL Lymph # (Auto) 1.50 (1.00-4.00) 10^3/uL [place] # (Auto) 1.38 H (0.10-0.80) 10^3/uL Eos # (Auto) 0.01 L (0.10-0.30) 10^3/uL Baso # (Auto) 0.04 (0.00-0.10) 10^3/uL Immature Gran # (Auto) 0.24 (0.00-0.50) 10^3/uL Sodium 139 (136-145) mmol/L Potassium 3.2 L (3.5-5.1) mmol/L Chloride 99 (98-107) mmol/L Carbon Dioxide 26.4 (21.0-32.0) mmol/L Anion Gap 16.8 H (5-15) mmol/L BUN 39 H D (7-18) mg/dL Creatinine 1.85 H (0.51-1.17) mg/dL Est Cr Clr Drug Dosing 34.49 mL/min Estimated GFR (MDRD) 37 mL/min Glucose 78 (70-140) mg/dL POC Glucose (70-140) mg/dL Lactic Acid (0.4-2.0) mmol/L Calcium 8.5 L (8.7-10.3) mg/dL Total Bilirubin 0.3 (0.2-1.0) mg/dL AST 43 H (15-37) U/L ALT 53 (14-63) U/L Alkaline Phosphatase 101 (46-116) U/L Troponin I High Sens 9.500 (0-76.000) pg/mL Total Protein 8.3 H (6.4-8.2) g/dL Albumin 2.57 L (3.40-5.00) g/dL Specimen Type Urinvoid Urine Color Yellow (YELLOW) Urine Appearance Slightly cloudy H (CLEAR) Urine pH 5.5 (5.0-9.0) Ur Specific [place] >= 1.030 (1.005-1.030) Urine Protein >=300 H (NEGATIVE) mg/dL Urine Glucose (UA) Negative (NEGATIVE) mg/dL Urine Ketones Trace H (NEGATIVE) mg/dL Urine Occult Blood Small H (NEGATIVE) Urine Nitrite Negative (NEGATIVE) Urine Bilirubin Small H (NEGATIVE) Urine Urobilinogen 0.2 (0.2-1.0) E.U./dL Ur Leukocyte Esterase Negative (NEGATIVE) Urine RBC 0-5 (0-5) /HPF Urine WBC 0-5 (0-5) /HPF Ur Epithelial Cells Few /LPF Amorphous Sediment Many H (0/HPF) /HPF Urine Bacteria Rare (NONE TO FEW) /HPF Granular Casts (Auto) Few SARS CoV-2 RNA Rapid PASTORA (NEGATIVE) 03/21/21 03/21/21 03/21/21 Range/Units 10:45 10:55 17:31 WBC (5.00-10.00) 10^3/uL RBC (4.50-6.00) 10^6/uL Hgb (13.0-17.0) g/dL Hct (40.0-52.0) % MCV (82.0-92.0) fL MCH (27.0-31.0) pg MCHC (32.0-36.0) g/dL RDW (11.5-14.5) % Plt Count (150-400) 10^3/uL MPV (7.4-10.4) fL Immature Gran % (Auto) (0.0-5.0) % Neut % (Auto) (50.0-70.0) % Lymph % (Auto) (20.0-40.0) % [place] % (Auto) (2.0-8.0) % Eos % (Auto) (1.0-3.0) % Baso % (Auto) (0.0-1.0) % Neut # (Auto) (2.50-7.00) 10^3/uL Lymph # (Auto) (1.00-4.00) 10^3/uL [place] # (Auto) (0.10-0.80) 10^3/uL Eos # (Auto) (0.10-0.30) 10^3/uL Baso # (Auto) (0.00-0.10) 10^3/uL Immature Gran # (Auto) (0.00-0.50) 10^3/uL Sodium (136-145) mmol/L Potassium (3.5-5.1) mmol/L Chloride (98-107) mmol/L Carbon Dioxide (21.0-32.0) mmol/L Anion Gap (5-15) mmol/L BUN (7-18) mg/dL Creatinine (0.51-1.17) mg/dL Est Cr Clr Drug Dosing mL/min Estimated GFR (MDRD) mL/min Glucose (70-140) mg/dL POC Glucose 70 (70-140) mg/dL Lactic Acid 1.6 (0.4-2.0) mmol/L Calcium (8.7-10.3) mg/dL Total Bilirubin (0.2-1.0) mg/dL AST (15-37) U/L ALT (14-63) U/L Alkaline Phosphatase (46-116) U/L Troponin I High Sens (0-76.000) pg/mL Total Protein (6.4-8.2) g/dL Albumin (3.40-5.00) g/dL Specimen Type Urine Color (YELLOW) Urine Appearance (CLEAR) Urine pH (5.0-9.0) Ur Specific [place] (1.005-1.030) Urine Protein (NEGATIVE) mg/dL Urine Glucose (UA) (NEGATIVE) mg/dL Urine Ketones (NEGATIVE) mg/dL Urine Occult Blood (NEGATIVE) Urine Nitrite (NEGATIVE) Urine Bilirubin (NEGATIVE) Urine Urobilinogen (0.2-1.0) E.U./dL Ur Leukocyte Esterase (NEGATIVE) Urine RBC (0-5) /HPF Urine WBC (0-5) /HPF Ur Epithelial Cells /LPF Amorphous Sediment (0/HPF) /HPF Urine Bacteria (NONE TO FEW) /HPF Granular Casts (Auto) SARS CoV-2 RNA Rapid [place] Negative (NEGATIVE) 03/21/21 03/22/21 03/22/21 Range/Units 20:50 07:19 07:50 WBC 19.24 H (5.00-10.00) 10^3/uL RBC 4.31 L (4.50-6.00) 10^6/uL Hgb 11.7 L (13.0-17.0) g/dL Hct 35.6 L (40.0-52.0) % MCV 82.6 (82.0-92.0) fL MCH 27.1 (27.0-31.0) pg MCHC 32.9 (32.0-36.0) g/dL RDW 13.4 (11.5-14.5) % Plt Count 479 H (150-400) 10^3/uL MPV 8.9 (7.4-10.4) fL Immature Gran % (Auto) 0.9 (0.0-5.0) % Neut % (Auto) 80.9 H (50.0-70.0) % Lymph % (Auto) 11.1 L (20.0-40.0) % [place] % (Auto) 6.6 (2.0-8.0) % Eos % (Auto) 0.2 L (1.0-3.0) % Baso % (Auto) 0.3 (0.0-1.0) % Neut # (Auto) 15.57 H (2.50-7.00) 10^3/uL Lymph # (Auto) 2.14 (1.00-4.00) 10^3/uL [place] # (Auto) 1.27 H (0.10-0.80) 10^3/uL Eos # (Auto) 0.03 L (0.10-0.30) 10^3/uL Baso # (Auto) 0.06 (0.00-0.10) 10^3/uL Immature Gran # (Auto) 0.17 (0.00-0.50) 10^3/uL Sodium (136-145) mmol/L Potassium (3.5-5.1) mmol/L Chloride (98-107) mmol/L Carbon Dioxide (21.0-32.0) mmol/L Anion Gap (5-15) mmol/L BUN (7-18) mg/dL Creatinine (0.51-1.17) mg/dL Est Cr Clr Drug Dosing mL/min Estimated GFR (MDRD) mL/min Glucose (70-140) mg/dL POC Glucose 151 H 75 (70-140) mg/dL Lactic Acid (0.4-2.0) mmol/L Calcium (8.7-10.3) mg/dL Total Bilirubin (0.2-1.0) mg/dL AST (15-37) U/L ALT (14-63) U/L Alkaline Phosphatase (46-116) U/L Troponin I High Sens (0-76.000) pg/mL Total Protein (6.4-8.2) g/dL Albumin (3.40-5.00) g/dL Specimen Type Urine Color (YELLOW) Urine Appearance (CLEAR) Urine pH (5.0-9.0) Ur Specific [place] (1.005-1.030) Urine Protein (NEGATIVE) mg/dL Urine Glucose (UA) (NEGATIVE) mg/dL Urine Ketones (NEGATIVE) mg/dL Urine Occult Blood (NEGATIVE) Urine Nitrite (NEGATIVE) Urine Bilirubin (NEGATIVE) Urine Urobilinogen (0.2-1.0) E.U./dL Ur Leukocyte Esterase (NEGATIVE) Urine RBC (0-5) /HPF Urine WBC (0-5) /HPF Ur Epithelial Cells /LPF Amorphous Sediment (0/HPF) /HPF Urine Bacteria (NONE TO FEW) /HPF Granular Casts (Auto) SARS CoV-2 RNA Rapid PA[place]A (NEGATIVE) 03/22/21 Range/Units 07:50 WBC (5.00-10.00) 10^3/uL RBC (4.50-6.00) 10^6/uL Hgb (13.0-17.0) g/dL Hct (40.0-52.0) % MCV (82.0-92.0) fL MCH (27.0-31.0) pg MCHC (32.0-36.0) g/dL RDW (11.5-14.5) % Plt Count (150-400) 10^3/uL MPV (7.4-10.4) fL Immature Gran % (Auto) (0.0-5.0) % Neut % (Auto) (50.0-70.0) % Lymph % (Auto) (20.0-40.0) % [place] % (Auto) (2.0-8.0) % Eos % (Auto) (1.0-3.0) % Baso % (Auto) (0.0-1.0) % Neut # (Auto) (2.50-7.00) 10^3/uL Lymph # (Auto) (1.00-4.00) 10^3/uL [place] # (Auto) (0.10-0.80) 10^3/uL Eos # (Auto) (0.10-0.30) 10^3/uL Baso # (Auto) (0.00-0.10) 10^3/uL Immature Gran # (Auto) (0.00-0.50) 10^3/uL Sodium 137 (136-145) mmol/L Potassium 2.9 L (3.5-5.1) mmol/L Chloride 100 (98-107) mmol/L Carbon Dioxide 24.3 (21.0-32.0) mmol/L Anion Gap 15.6 H (5-15) mmol/L BUN 25 H (7-18) mg/dL Creatinine 1.35 H (0.51-1.17) mg/dL Est Cr Clr Drug Dosing 47.26 mL/min Estimated GFR (MDRD) 53 mL/min Glucose 80 (70-140) mg/dL POC Glucose (70-140) mg/dL Lactic Acid (0.4-2.0) mmol/L Calcium 7.7 L (8.7-10.3) mg/dL Total Bilirubin (0.2-1.0) mg/dL AST (15-37) U/L ALT (14-63) U/L Alkaline Phosphatase (46-116) U/L Troponin I High Sens (0-76.000) pg/mL Total Protein (6.4-8.2) g/dL Albumin (3.40-5.00) g/dL Specimen Type Urine Color (YELLOW) Urine Appearance (CLEAR) Urine pH (5.0-9.0) Ur Specific [place] (1.005-1.030) Urine Protein (NEGATIVE) mg/dL Urine Glucose (UA) (NEGATIVE) mg/dL Urine Ketones (NEGATIVE) mg/dL Urine Occult Blood (NEGATIVE) Urine Nitrite (NEGATIVE) Urine Bilirubin (NEGATIVE) Urine Urobilinogen (0.2-1.0) E.U./dL Ur Leukocyte Esterase (NEGATIVE) Urine RBC (0-5) /HPF Urine WBC (0-5) /HPF Ur Epithelial Cells /LPF Amorphous Sediment (0/HPF) /HPF Urine Bacteria (NONE TO FEW) /HPF Granular Casts (Auto) SARS CoV-2 RNA Rapid PA[place]A (NEGATIVE) Med Orders - Current: Current Medications Acetaminophen (Acetaminophen 325 Mg Tab) 1,000 mg PO Q6HR PRN PRN Reason: Pain (Mild 1-3)/fever Last Admin: 03/21/21 17:47 Dose: 1,000 mg Documented by: Albuterol/Ipratropium (Albuterol/Ipratropium 3.0-0.5 Mg/3 Ml Neb Soln) 3 ml NEB Q4H PRN PRN Reason: Shortness Of Breath/wheezing Last Admin: 03/22/21 05:50 Dose: 3 ml Documented by: Ceftriaxone Sodium (Ceftriaxone 1 Gm Vial) 1 gm IVPUSH Q24H [facility] Cyanocobalamin (Cyanocobalamin (Vitamin B12) 500 Mcg Tab) 1,000 mcg PO DAILY [facility] Last Admin: 03/22/21 08:09 Dose: 1,000 mcg Documented by: Dextrose/Water (50% Dextrose In Water 50 Ml Syringe) 50 ml IVPUSH ASDIRECTED PRN PRN Reason: Hypoglycemia Glucagon (Glucagon,Human Recombinant 1 Mg Vial) 1 mg IM ASDIRECTED PRN PRN Reason: Hypoglycemia Hydrochlorothiazide (Hydrochlorothiazide 25 Mg Tab) 25 mg PO DAILY [facility] Last Admin: 03/22/21 08:13 Dose: 25 mg Documented by: Azithromycin 500 mg/ Sodium (Chloride) 250 mls @ 250 mls/hr IV Q24H [facility] Last Admin: 03/21/21 13:25 Dose: 250 mls/hr Documented by: Sodium Chloride (Normal Saline) 100 mls @ 125 mls/hr IV ASDIRECTED [facility] Last Admin: 03/21/21 15:34 Dose: 125 mls/hr Documented by: Insulin Aspart (Insulin Aspart 100 Units/Ml 3 Ml Pen) 0 unit SUBCUT WITHMEALSANDBED [facility]; Protocol Last Admin: 03/22/21 08:13 Dose: Not Given Documented by: Insulin Glargine (Insulin Glargine,Human Rec. Analog 100 Units/Ml 3 Ml Pen) 85 units SUBCUT BEDTIME [facility] Last Admin: 03/21/21 20:56 Dose: 85 unit Documented by: Lisinopril (Lisinopril 20 Mg Tab) 40 mg PO DAILY [facility] Last Admin: 03/22/21 08:11 Dose: 40 mg Documented by: Lorazepam (Lorazepam 0.5 Mg Tab) 1 mg PO TIDMEALS [facility] Last Admin: 03/22/21 08:10 Dose: 1 mg Documented by: Metformin HCl (Metformin 500 Mg Tab) 1,000 mg PO BID@0800,1200 [facility] Last Admin: 03/22/21 08:09 Dose: 1,000 mg Documented by: Non-Formulary Medication (Liraglutide [Victoza 2-Farrukh]) 1.8 mg SUBCUT DAILY [facility] Nicotine Polacrilex [Nicotine Lozenge] 2mg Own Med 2 mg PO Q2H PRN PRN Reason: smoking cessation Last Admin: 03/21/21 19:58 Dose: 2 mg Documented by: Rosuvastatin Calcium (Rosuvastatin 10 Mg Tab) 20 mg PO BEDTIME [facility] Last Admin: 03/21/21 20:56 Dose: 20 mg Documented by: Tamsulosin HCl (Tamsulosin 0.4 Mg Cap.Er) 0.4 mg PO DAILY@1200 [facility] Discontinued Medications Acetaminophen (Acetaminophen 500 Mg Tab) 1,000 mg PO ONETIME ONE Stop: 03/21/21 10:41 Last Admin: 03/21/21 11:18 Dose: 1,000 mg Documented by: Albuterol/Ipratropium (Albuterol/Ipratropium 3.0-0.5 Mg/3 Ml Neb Soln) 3 ml NEB ONETIME ONE Stop: 03/21/21 11:42 Last Admin: 03/21/21 11:49 Dose: 3 ml Documented by: Ceftriaxone Sodium (Ceftriaxone 1 Gm Vial) 1 gm IVPUSH ONETIME ONE Stop: 03/21/21 11:28 Last Admin: 03/21/21 11:48 Dose: 1 gm Documented by: Sodium Chloride (Normal Saline) 1,000 mls @ 1,000 mls/hr IV BOLUS ONE; Protocol Stop: 03/21/21 11:31 Last Admin: 03/21/21 11:27 Dose: 1,000 mls/hr Documented by: Non-Formulary Medication (Lorazepam [Ativan]) 1 mg PO Q8H PRN PRN Reason: Anxiety Non-Formulary Medication (Nicotine Polacrilex [Nicotine Lozenge]) 2 mg BC Q2HR [facility] Sodium Chloride (Sodium Chloride 0.9% 10 Ml Syringe) 10 ml FLUSH Q8HR PRN PRN Reason: keep vein open - Exam Quality Assessment: Supplemental Oxygen General: Alert, Oriented Neck: Supple Lungs: Normal Respiratory Effort, Decreased Breath Sounds Cardiovascular: Regular Rate, Regular Rhythm GI/Abdominal Exam: Normal Bowel Sounds, Soft, Non-Tender, No Organomegaly, No Distention, No Abnormal Bruit, No Mass, Pelvis Stable Back Exam: Normal Inspection, Full Range of Motion Extremities: Normal Inspection, Normal Range of Motion, Non-Tender, No Pedal Edema, Normal Capillary Refill Skin: Warm, Dry, Intact Neurological: No New Focal Deficit Psy/Mental Status: Alert, Normal Affect, Normal Mood - Patient Data Lab Results Last 24 hrs: Laboratory Results - last 24 hr 03/21/21 03/21/21 03/21/21 Range/Units 10:32 10:45 10:45 WBC 19.17 H (5.00-10.00) 10^3/uL RBC 4.73 (4.50-6.00) 10^6/uL Hgb 12.9 L D (13.0-17.0) g/dL Hct 39.2 L (40.0-52.0) % MCV 82.9 (82.0-92.0) fL MCH 27.3 (27.0-31.0) pg MCHC 32.9 (32.0-36.0) g/dL RDW 13.2 (11.5-14.5) % Plt Count 516 H D (150-400) 10^3/uL MPV 8.9 (7.4-10.4) fL Immature Gran % (Auto) 1.3 (0.0-5.0) % Neut % (Auto) 83.4 H (50.0-70.0) % Lymph % (Auto) 7.8 L (20.0-40.0) % [place] % (Auto) 7.2 (2.0-8.0) % Eos % (Auto) 0.1 L (1.0-3.0) % Baso % (Auto) 0.2 (0.0-1.0) % Neut # (Auto) 16.00 H (2.50-7.00) 10^3/uL Lymph # (Auto) 1.50 (1.00-4.00) 10^3/uL [place] # (Auto) 1.38 H (0.10-0.80) 10^3/uL Eos # (Auto) 0.01 L (0.10-0.30) 10^3/uL Baso # (Auto) 0.04 (0.00-0.10) 10^3/uL Immature Gran # (Auto) 0.24 (0.00-0.50) 10^3/uL Sodium 139 (136-145) mmol/L Potassium 3.2 L (3.5-5.1) mmol/L Chloride 99 (98-107) mmol/L Carbon Dioxide 26.4 (21.0-32.0) mmol/L Anion Gap 16.8 H (5-15) mmol/L BUN 39 H D (7-18) mg/dL Creatinine 1.85 H (0.51-1.17) mg/dL Est Cr Clr Drug Dosing 34.49 mL/min Estimated GFR (MDRD) 37 mL/min Glucose 78 (70-140) mg/dL POC Glucose (70-140) mg/dL Lactic Acid (0.4-2.0) mmol/L Calcium 8.5 L (8.7-10.3) mg/dL Total Bilirubin 0.3 (0.2-1.0) mg/dL AST 43 H (15-37) U/L ALT 53 (14-63) U/L Alkaline Phosphatase 101 (46-116) U/L Troponin I High Sens 9.500 (0-76.000) pg/mL Total Protein 8.3 H (6.4-8.2) g/dL Albumin 2.57 L (3.40-5.00) g/dL Specimen Type Urinvoid Urine Color Yellow (YELLOW) Urine Appearance Slightly cloudy H (CLEAR) Urine pH 5.5 (5.0-9.0) Ur Specific [place] >= 1.030 (1.005-1.030) Urine Protein >=300 H (NEGATIVE) mg/dL Urine Glucose (UA) Negative (NEGATIVE) mg/dL Urine Ketones Trace H (NEGATIVE) mg/dL Urine Occult Blood Small H (NEGATIVE) Urine Nitrite Negative (NEGATIVE) Urine Bilirubin Small H (NEGATIVE) Urine Urobilinogen 0.2 (0.2-1.0) E.U./dL Ur Leukocyte Esterase Negative (NEGATIVE) Urine RBC 0-5 (0-5) /HPF Urine WBC 0-5 (0-5) /HPF Ur Epithelial Cells Few /LPF Amorphous Sediment Many H (0/HPF) /HPF Urine Bacteria Rare (NONE TO FEW) /HPF Granular Casts (Auto) Few SARS CoV-2 RNA Rapid [place] (NEGATIVE) 03/21/21 03/21/21 03/21/21 Range/Units 10:45 10:55 17:31 WBC (5.00-10.00) 10^3/uL RBC (4.50-6.00) 10^6/uL Hgb (13.0-17.0) g/dL Hct (40.0-52.0) % MCV (82.0-92.0) fL MCH (27.0-31.0) pg MCHC (32.0-36.0) g/dL RDW (11.5-14.5) % Plt Count (150-400) 10^3/uL MPV (7.4-10.4) fL Immature Gran % (Auto) (0.0-5.0) % Neut % (Auto) (50.0-70.0) % Lymph % (Auto) (20.0-40.0) % [place] % (Auto) (2.0-8.0) % Eos % (Auto) (1.0-3.0) % Baso % (Auto) (0.0-1.0) % Neut # (Auto) (2.50-7.00) 10^3/uL Lymph # (Auto) (1.00-4.00) 10^3/uL [place] # (Auto) (0.10-0.80) 10^3/uL Eos # (Auto) (0.10-0.30) 10^3/uL Baso # (Auto) (0.00-0.10) 10^3/uL Immature Gran # (Auto) (0.00-0.50) 10^3/uL Sodium (136-145) mmol/L Potassium (3.5-5.1) mmol/L Chloride (98-107) mmol/L Carbon Dioxide (21.0-32.0) mmol/L Anion Gap (5-15) mmol/L BUN (7-18) mg/dL Creatinine (0.51-1.17) mg/dL Est Cr Clr Drug Dosing mL/min Estimated GFR (MDRD) mL/min Glucose (70-140) mg/dL POC Glucose 70 (70-140) mg/dL Lactic Acid 1.6 (0.4-2.0) mmol/L Calcium (8.7-10.3) mg/dL Total Bilirubin (0.2-1.0) mg/dL AST (15-37) U/L ALT (14-63) U/L Alkaline Phosphatase (46-116) U/L Troponin I High Sens (0-76.000) pg/mL Total Protein (6.4-8.2) g/dL Albumin (3.40-5.00) g/dL Specimen Type Urine Color (YELLOW) Urine Appearance (CLEAR) Urine pH (5.0-9.0) Ur Specific [place] (1.005-1.030) Urine Protein (NEGATIVE) mg/dL Urine Glucose (UA) (NEGATIVE) mg/dL Urine Ketones (NEGATIVE) mg/dL Urine Occult Blood (NEGATIVE) Urine Nitrite (NEGATIVE) Urine Bilirubin (NEGATIVE) Urine Urobilinogen (0.2-1.0) E.U./dL Ur Leukocyte Esterase (NEGATIVE) Urine RBC (0-5) /HPF Urine WBC (0-5) /HPF Ur Epithelial Cells /LPF Amorphous Sediment (0/HPF) /HPF Urine Bacteria (NONE TO FEW) /HPF Granular Casts (Auto) SARS CoV-2 RNA Rapid [place] Negative (NEGATIVE) 03/21/21 03/22/21 03/22/21 Range/Units 20:50 07:19 07:50 WBC 19.24 H (5.00-10.00) 10^3/uL RBC 4.31 L (4.50-6.00) 10^6/uL Hgb 11.7 L (13.0-17.0) g/dL Hct 35.6 L (40.0-52.0) % MCV 82.6 (82.0-92.0) fL MCH 27.1 (27.0-31.0) pg MCHC 32.9 (32.0-36.0) g/dL RDW 13.4 (11.5-14.5) % Plt Count 479 H (150-400) 10^3/uL MPV 8.9 (7.4-10.4) fL Immature Gran % (Auto) 0.9 (0.0-5.0) % Neut % (Auto) 80.9 H (50.0-70.0) % Lymph % (Auto) 11.1 L (20.0-40.0) % [place] % (Auto) 6.6 (2.0-8.0) % Eos % (Auto) 0.2 L (1.0-3.0) % Baso % (Auto) 0.3 (0.0-1.0) % Neut # (Auto) 15.57 H (2.50-7.00) 10^3/uL Lymph # (Auto) 2.14 (1.00-4.00) 10^3/uL [place] # (Auto) 1.27 H (0.10-0.80) 10^3/uL Eos # (Auto) 0.03 L (0.10-0.30) 10^3/uL Baso # (Auto) 0.06 (0.00-0.10) 10^3/uL Immature Gran # (Auto) 0.17 (0.00-0.50) 10^3/uL Sodium (136-145) mmol/L Potassium (3.5-5.1) mmol/L Chloride (98-107) mmol/L Carbon Dioxide (21.0-32.0) mmol/L Anion Gap (5-15) mmol/L BUN (7-18) mg/dL Creatinine (0.51-1.17) mg/dL Est Cr Clr Drug Dosing mL/min Estimated GFR (MDRD) mL/min Glucose (70-140) mg/dL POC Glucose 151 H 75 (70-140) mg/dL Lactic Acid (0.4-2.0) mmol/L Calcium (8.7-10.3) mg/dL Total Bilirubin (0.2-1.0) mg/dL AST (15-37) U/L ALT (14-63) U/L Alkaline Phosphatase (46-116) U/L Troponin I High Sens (0-76.000) pg/mL Total Protein (6.4-8.2) g/dL Albumin (3.40-5.00) g/dL Specimen Type Urine Color (YELLOW) Urine Appearance (CLEAR) Urine pH (5.0-9.0) Ur Specific [place] (1.005-1.030) Urine Protein (NEGATIVE) mg/dL Urine Glucose (UA) (NEGATIVE) mg/dL Urine Ketones (NEGATIVE) mg/dL Urine Occult Blood (NEGATIVE) Urine Nitrite (NEGATIVE) Urine Bilirubin (NEGATIVE) Urine Urobilinogen (0.2-1.0) E.U./dL Ur Leukocyte Esterase (NEGATIVE) Urine RBC (0-5) /HPF Urine WBC (0-5) /HPF Ur Epithelial Cells /LPF Amorphous Sediment (0/HPF) /HPF Urine Bacteria (NONE TO FEW) /HPF Granular Casts (Auto) SARS CoV-2 RNA Rapid [place] (NEGATIVE) 03/22/21 Range/Units 07:50 WBC (5.00-10.00) 10^3/uL RBC (4.50-6.00) 10^6/uL Hgb (13.0-17.0) g/dL Hct (40.0-52.0) % MCV (82.0-92.0) fL MCH (27.0-31.0) pg MCHC (32.0-36.0) g/dL RDW (11.5-14.5) % Plt Count (150-400) 10^3/uL MPV (7.4-10.4) fL Immature Gran % (Auto) (0.0-5.0) % Neut % (Auto) (50.0-70.0) % Lymph % (Auto) (20.0-40.0) % [place] % (Auto) (2.0-8.0) % Eos % (Auto) (1.0-3.0) % Baso % (Auto) (0.0-1.0) % Neut # (Auto) (2.50-7.00) 10^3/uL Lymph # (Auto) (1.00-4.00) 10^3/uL [place] # (Auto) (0.10-0.80) 10^3/uL Eos # (Auto) (0.10-0.30) 10^3/uL Baso # (Auto) (0.00-0.10) 10^3/uL Immature Gran # (Auto) (0.00-0.50) 10^3/uL Sodium 137 (136-145) mmol/L Potassium 2.9 L (3.5-5.1) mmol/L Chloride 100 (98-107) mmol/L Carbon Dioxide 24.3 (21.0-32.0) mmol/L Anion Gap 15.6 H (5-15) mmol/L BUN 25 H (7-18) mg/dL Creatinine 1.35 H (0.51-1.17) mg/dL Est Cr Clr Drug Dosing 47.26 mL/min Estimated GFR (MDRD) 53 mL/min Glucose 80 (70-140) mg/dL POC Glucose (70-140) mg/dL Lactic Acid (0.4-2.0) mmol/L Calcium 7.7 L (8.7-10.3) mg/dL Total Bilirubin (0.2-1.0) mg/dL AST (15-37) U/L ALT (14-63) U/L Alkaline Phosphatase (46-116) U/L Troponin I High Sens (0-76.000) pg/mL Total Protein (6.4-8.2) g/dL Albumin (3.40-5.00) g/dL Specimen Type Urine Color (YELLOW) Urine Appearance (CLEAR) Urine pH (5.0-9.0) Ur Specific [place] (1.005-1.030) Urine Protein (NEGATIVE) mg/dL Urine Glucose (UA) (NEGATIVE) mg/dL Urine Ketones (NEGATIVE) mg/dL Urine Occult Blood (NEGATIVE) Urine Nitrite (NEGATIVE) Urine Bilirubin (NEGATIVE) Urine Urobilinogen (0.2-1.0) E.U./dL Ur Leukocyte Esterase (NEGATIVE) Urine RBC (0-5) /HPF Urine WBC (0-5) /HPF Ur Epithelial Cells /LPF Amorphous Sediment (0/HPF) /HPF Urine Bacteria (NONE TO FEW) /HPF Granular Casts (Auto) SARS CoV-2 RNA Rapid [place] (NEGATIVE) Result Diagrams: 03/22/21 07:50 03/22/21 07:50 Sepsis Event Note - Evaluation Sepsis Screening Result: Sepsis Risk - Focused Exam Vital Signs: Vital Signs Temp Pulse Resp BP BP Pulse Ox Pulse Ox 03/22/21 08:11 134/68 03/22/21 06:24 99.2 F 111 H 28 H 132/66 93 L 03/22/21 05:50 104 H 90 L 03/22/21 02:52 98.3 F 106 H 28 H 134/64 94 L 03/21/21 22:23 98.2 F 101 H 26 H 114/57 L 93 L - Problem List & Annotations (1) Pneumonia SNOMED Code(s): 576338025 Code(s): J18.9 - PNEUMONIA, UNSPECIFIED ORGANISM Status: Acute Current Visit: Yes Qualifiers: Pneumonia type: due to unspecified organism Laterality: left Lung location: upper lobe of lung Qualified Code(s): J18.9 - Pneumonia, unspecified organism - Problem List Review Problem List Initiated/Reviewed/Updated: Yes - My Orders Last 24 Hours: My Active Orders 03/21/21 10:32 Blood Culture x2 Reflex Set [OM.PC] Stat Saline Lock Insert [OM.PC] Stat EKG 12 Lead [EK] Stat 03/21/21 10:45 CULTURE BLOOD [BC] Stat 03/21/21 10:55 CULTURE BLOOD [BC] Stat 03/21/21 Lunch [employer] Diet [DIET] 03/21/21 12:08 Patient Status [ADT] Routine Oxygen Therapy [RC] PRN Up With Assistance [RC] ASDIRECTED VTE/DVT Education [RC] PER UNIT ROUTINE Vital Signs [RC] ,,,,, CULTURE SPUTUM + SMEAR [RM] Stat Acetaminophen [TylenoL] 1,000 mg PO Q6HR PRN Albuterol/Ipratropium [DuoNeb 3.0-0.5 MG/3 ML] 3 ml NEB Q4H PRN Resuscitation Status Routine 03/21/21 12:09 Cardiac Monitoring [RC] 03,07,,,, Pulse Oximetry [RC] CONTINUOUS 03/21/21 12:11 RT Aerosol Therapy [RC] ASDIRECTED 03/21/21 12:15 Azithromycin [Zithromax] 500 mg Sodium Chloride 0.9% [Normal Saline] 250 ml IV Q24H 03/21/21 13:15 Sodium Chloride 0.9% [Normal Saline] 100 ml IV ASDIRECTED 03/21/21 19:52 Communication Order [RC] 03/22/21 11:00 cefTRIAXone [Rocephin] 1 gm IVPUSH Q24H - Assessment Assessment:: 1. COMMUNITY ACQUIRED PNEUMONIA 2. HYPOKALEMIA 3. HYPOXEMIA - Plan Plan:: 1. CONTINUE ROCEPHIN/ZITHROMAX FOR PNEUMONIA 2. START DUONEB Q6HR TREATMENTS 3. PT TO ACCESS AND TREAT FOR CONDITIONING 4. KDUR 40MEQ NOW 5. INCENTIVE SPIROMETER 6. SPUTUM CULTURE 7. WEAN O2 TOLERATED
[2021-03-22] MEDS ORDERED: Potassium Chloride 20 MEQ Tab.ER PO ONE (10:30)
[2021-03-22] MEDS: Tamsulosin 0.4 MG Cap.ER PO SCH (11:30)
[2021-03-22] MEDS: cefTRIAXone 1 GM Vial IVPUSH SCH (11:35)
[2021-03-22] MEDS: Azithromycin 500 MG in Sodium Chloride 0.9% 250 ML IV SCH (11:40)
[2021-03-22] MEDS: Albuterol/Ipratropium 3.0-0.5 MG/3 ML Neb Soln NEB SCH ×3 (11:41→22:17)
[2021-03-22] MEDS: Enoxaparin 40 MG/0.4 ML Syringe SUBCUT SCH (12:27)
[2021-03-22] MEDS: Sodium Chloride 0.9% 1,000 ML IV SCH ×2 (12:30→20:49)
[2021-03-22] MEDS: Rosuvastatin 10 MG Tab PO SCH (20:42)
[2021-03-22] MEDS: Insulin Glargine,Human Rec. Analog 100 Units/ML 3 ML Pen SUBCUT SCH (20:43)
[2021-03-23] MEDS ORDERED: Melatonin 3 MG Tab PO PRN (00:25)
[2021-03-23] MEDS: Albuterol/Ipratropium 3.0-0.5 MG/3 ML Neb Soln NEB SCH ×2 (05:37→10:54)
[2021-03-23] MEDS: Sodium Chloride 0.9% 1,000 ML IV SCH (05:38)
[2021-03-23] MEDS: Cyanocobalamin (Vitamin B12) 500 MCG Tab PO SCH (08:30)
[2021-03-23] MEDS: LORazepam 0.5 MG Tab PO SCH ×2 (08:30→11:43)
[2021-03-23] MEDS: metFORMIN 500 MG Tab PO SCH ×2 (08:35→11:43)
[2021-03-23] MEDS: Insulin Aspart 100 Units/ML 3 ML Pen SUBCUT SCH ×2 (08:35→11:42)
[2021-03-23] MEDS: Lisinopril 20 MG Tab PO SCH (08:35)
[2021-03-23] MEDS: Hydrochlorothiazide 25 MG Tab PO SCH (08:35)
[2021-03-23] MEDS ORDERED: NS + KCl 20mEq/L 1,000 ML IV SCH (08:45)
[2021-03-23] MEDS ORDERED: Potassium Chloride 20 MEQ Tab.ER PO ONE (08:45)
[2021-03-23 09:39] LABS: ANION GAP 12.4 mmol/L (5-15); CHLORIDE,CL 104 mmol/L (98-107); SODIUM,NA 140 mmol/L (136-145)
[2021-03-23] MEDS: Enoxaparin 40 MG/0.4 ML Syringe SUBCUT SCH (10:54)
[2021-03-23] MEDS: cefTRIAXone 1 GM Vial IVPUSH SCH (10:54)
[2021-03-23 11:11] VITALS: PULSE 96
--- NOTE | 2021-03-23 11:12 | PN ---
03/23/2021 PATIENT NAME: SHAYNE BLISS SUBJECTIVE: Shayne is seen today on inpatient rounds. He was admitted on 03/21 through the emergency department with a left upper lobe pneumonia. He was noted to have a leukocytosis with a white blood cell count of 19,000 as well as a temperature of 101.5. He had a productive cough and had been feeling run down for the last 2-1/2 weeks. He thought that he had COVID. However, his COVID test was negative and chest x-ray showed left upper lobe infiltrate. He was started on azithromycin and Rocephin. He has done well over the course of the last 2 days. He had some elevation of his renal function. However, that has improved with normal saline running at 125 mL/hr. This morning, he states that he is feeling better than he has in the last several days. His white blood cell count is down to 11,000 this morning. His BUN and creatinine have returned to normal. He is asking if he can go home today. OBJECTIVE: VITAL SIGNS: Blood pressure is 143/74, pulse is 95, respirations 16, oxygen saturation is 98% on 2 L. He is afebrile. CARDIOVASCULAR: Regular rate and rhythm without murmurs, gallops, or rubs. RESPIRATORY: Lungs are clear to auscultation bilaterally. ABDOMEN: Bowel sounds are positive. EXTREMITIES: He has no lower extremity . PERTINENT LABORATORY INFORMATION: White blood cell count is 11.4, hemoglobin is 10.9, which is stable. Platelet count is 456,000, which has been consistent with his reading, so he has been in the hospital. A basic metabolic panel shows a BUN of 16 with a creatinine of 1.15. Sodium is 140, potassium is low today at 2.9. It was low yesterday also despite having received 40 mEq of potassium orally. Blood glucose what was initially low this morning, but it rebounded to 140. ASSESSMENT: Community-acquired pneumonia. PLAN: I would like to observe him at least for another several hours today. He was just recently removed from oxygen and so we will see how his O2 saturations are when he is on room air. He looks much better today and so I think it would be reasonable to send him home today to complete a course of azithromycin for 5 days as an outpatient for treatment of his pneumonia. He can follow up in the clinic in a month. If we are able to send him home later this afternoon, there will be a separate entry for a discharge summary on him. /[id number]/MODL
[2021-03-23] MEDS ORDERED: Sodium Chloride 0.9% 100 ML IV SCH (11:30)
[2021-03-23] MEDS: Tamsulosin 0.4 MG Cap.ER PO SCH (11:43)
[2021-03-23] MEDS: Azithromycin 500 MG in Sodium Chloride 0.9% 250 ML IV SCH (11:44)
[2021-03-23 15:06] VITALS: BP 156/67
--- NOTE | 2021-03-23 15:24 | PCM.DCSUM1 ---
Discharge Summary - Hospital Course Free Text/Narrative:: Admission Date: 03/21/2021 Discharge Date: 03/23/2021 Disposition: Home, Self-Care Admission Diagnoses: Community Acquired Pneumonia - s/p 3 day IV course of azithromycin 500mg IV daily and rocephin 1 gram IV daily - Complete additional 2 days of azithromycin 250 mg PO daily 03/24 and 03/25 Neutrophilic leukocytosis - Secondary to above, improving Hypokalemia - s/p Potassium 40 mEq on 03/22 and 03/23 with IVF's of NS with 20 mEq KCL - Recheck BMP in 1 week as outpatient Acute renal insufficiency, resolved Secondary Diagnoses: Anxiety - Lorazepam 1 mg PO q 6 hours PRN BPH - Tamsulosin 0.4 mg PO daily DM - Levemir 85 units subcut daily - Victoza 1.8 mg sucut daily - Metformin 1,000 mg PO BID Hyperlipidemia - Rosuvastatin 20 mg PO daily HTN - HCTZ 25 mg PO daily - Lisinopril 40 mg PO daily Nutritional Supplement - B-12 1,0000 mcg PO daily New Meds at Discharge - Azithromycin 250 mg PO daily x 2 additional days CODE STATUS: Full Code Shayne is discharged from inpatient stay for CAP. He presented to the ER on 03/21 at the urging of his for SOB, cough, CP, weakness and fever. He thought he had COVID but his COVID test for admission was negative. He was noted to be febrile with a temp of 101.5 and CXR was consistent with a left upper lobe pneumonia. Blood cultures were obtained and were negative to date. He was started on azithromycin 500 mg IV daily and rocephin 1 gram IV daily. Sputum was not able to be collected. He rapidly improved from yesterday to today and was anxious to be discharged to home, not wanting to stay one additional day. He was on oxygen initially but has had normal O2 sats (>90%) off O2 for several hours. He was noted to have mild DWIGHT, felt to be pre-renal and improved with IVF's. He was noted to be hypokalemic, this is not a chronic issue for him, he was given potassium 40 mEq PO x 2 doses and had potassium in his IVF's. He will have a repeat BMP in 1 week at a follow-up appointment. He had leukocytosis with a WBC of 19,000 that improved to 11,000 on the day of discharge. He will complete a 5 day course of azithromycin. Diagnosis: Stroke: No Modified [place] Scale: No Signif.Disability Despite Sympt.Able to Carry Out Usual Act./Duties Modified [place] Scale Score: 1 - Discharge Data Discharge Date: 03/23/21 Discharge Disposition: Home, Self-Care 01 Condition: Good - Referral to Home Health Primary Care Physician: Paige Frost MD - Patient Summary/Data Consults: Consultations 03/22/21 10:27 PT Evaluation and Treatment [CONS] Routine Recommended Follow-up Testing/Procedures: BMP in 7-10 days. - Discharge Plan *PRESCRIPTION DRUG MONITORING PROGRAM REVIEWED*: No *COPY OF PRESCRIPTION DRUG MONITORING REPORT IN PATIENT AUDELIA: No Home Medications: Home Meds metFORMIN HCl [Metformin HCl] 1 tab PO BID 09/18/14 [History] LORazepam [Ativan] 1 mg PO Q8H PRN 05/26/15 [History] Lisinopril 40 mg PO DAILY 05/26/15 [History] Hydrochlorothiazide 25 mg PO DAILY 01/19/16 [History] Insulin Detemir [Levemir Flextouch] 85 units SQ BEDTIME 01/31/18 [History] Cyanocobalamin (Vitamin B12) [Vitamin B12] 1,000 mcg PO DAILY 03/21/21 [History] Liraglutide [Victoza 2-Farrukh] 1.8 mg SUBCUT DAILY 03/21/21 [History] Nicotine Polacrilex [Nicotine Lozenge] 2 mg BC Q2HR 03/21/21 [History] Rosuvastatin Calcium 20 mg PO DAILY 03/21/21 [History] Tamsulosin [Flomax] 0.4 mg PO DAILY 03/21/21 [History] Forms: ED Department Discharge Referrals: Paige Frost MD [Primary Care Provider] - - Discharge Summary/Plan Comment DC Time >30 min.: No - General Info Date of Service: 03/23/21 Admission Dx/Problem (Free Text: CAP - Patient Data Vitals - Most Recent: Last Vital Signs Temp 97.5 F 03/23/21 15:00 Pulse 96 03/23/21 15:00 Resp 22 H 03/23/21 15:00 BP 156/67 H 03/23/21 15:00 Pulse Ox 96 03/23/21 15:00 Weight - Most Recent: 191 lb 11.2 oz I&O - Last 24 hours: Intake & Output 03/23/21 03/23/21 03/23/21 06:59 14:59 22:59 Intake Total 1043 3155 Balance 1043 3155 Lab Results - Last 24 hrs: Laboratory Results - last 24 hr 03/22/21 03/22/21 03/22/21 Range/Units 11:55 16:20 20:40 WBC (5.00-10.00) 10^3/uL RBC (4.50-6.00) 10^6/uL Hgb (13.0-17.0) g/dL Hct (40.0-52.0) % MCV (82.0-92.0) fL MCH (27.0-31.0) pg MCHC (32.0-36.0) g/dL RDW (11.5-14.5) % Plt Count (150-400) 10^3/uL MPV (7.4-10.4) fL Immature Gran % (Auto) (0.0-5.0) % Neut % (Auto) (50.0-70.0) % Lymph % (Auto) (20.0-40.0) % Nelson % (Auto) (2.0-8.0) % Eos % (Auto) (1.0-3.0) % Baso % (Auto) (0.0-1.0) % Neut # (Auto) (2.50-7.00) 10^3/uL Lymph # (Auto) (1.00-4.00) 10^3/uL Nelson # (Auto) (0.10-0.80) 10^3/uL Eos # (Auto) (0.10-0.30) 10^3/uL Baso # (Auto) (0.00-0.10) 10^3/uL Immature Gran # (Auto) (0.00-0.50) 10^3/uL Sodium (136-145) mmol/L Potassium (3.5-5.1) mmol/L Chloride (98-107) mmol/L Carbon Dioxide (21.0-32.0) mmol/L Anion Gap (5-15) mmol/L BUN (7-18) mg/dL Creatinine (0.51-1.17) mg/dL Est Cr Clr Drug Dosing mL/min Estimated GFR (MDRD) mL/min Glucose (70-140) mg/dL POC Glucose 196 H (70-140) mg/dL Lactic Acid 1.8 (0.4-2.0) mmol/L Calcium (8.7-10.3) mg/dL Procalcitonin 1.39 H ng/mL 03/23/21 03/23/21 Range/Units 07:23 07:23 WBC 11.42 H (5.00-10.00) 10^3/uL RBC 4.07 L (4.50-6.00) 10^6/uL Hgb 10.9 L (13.0-17.0) g/dL Hct 33.6 L (40.0-52.0) % MCV 82.6 (82.0-92.0) fL MCH 26.8 L (27.0-31.0) pg MCHC 32.4 (32.0-36.0) g/dL RDW 13.3 (11.5-14.5) % Plt Count 456 H (150-400) 10^3/uL MPV 8.7 (7.4-10.4) fL Immature Gran % (Auto) 1.8 (0.0-5.0) % Neut % (Auto) 74.7 H (50.0-70.0) % Lymph % (Auto) 14.9 L (20.0-40.0) % Nelson % (Auto) 7.4 (2.0-8.0) % Eos % (Auto) 0.8 L (1.0-3.0) % Baso % (Auto) 0.4 (0.0-1.0) % Neut # (Auto) 8.54 H (2.50-7.00) 10^3/uL Lymph # (Auto) 1.70 (1.00-4.00) 10^3/uL Nelson # (Auto) 0.84 H (0.10-0.80) 10^3/uL Eos # (Auto) 0.09 L (0.10-0.30) 10^3/uL Baso # (Auto) 0.05 (0.00-0.10) 10^3/uL Immature Gran # (Auto) 0.20 (0.00-0.50) 10^3/uL Sodium 140 (136-145) mmol/L Potassium 2.9 L (3.5-5.1) mmol/L Chloride 104 (98-107) mmol/L Carbon Dioxide 26.5 (21.0-32.0) mmol/L Anion Gap 12.4 (5-15) mmol/L BUN 16 (7-18) mg/dL Creatinine 1.15 (0.51-1.17) mg/dL Est Cr Clr Drug Dosing 55.48 mL/min Estimated GFR (MDRD) > 60 mL/min Glucose 45 L (70-140) mg/dL POC Glucose (70-140) mg/dL Lactic Acid (0.4-2.0) mmol/L Calcium 7.7 L (8.7-10.3) mg/dL Procalcitonin ng/mL MAKENNA Results - Last 24 hrs: Microbiology 03/21/21 10:55 Aerobic Blood Culture - Preliminary Blood - Venous NO GROWTH AFTER 2 DAYS Anaerobic Blood Culture - Preliminary NO GROWTH AFTER 2 DAYS 03/21/21 10:45 Aerobic Blood Culture - Preliminary Blood - Venous - Lab Draw NO GROWTH AFTER 2 DAYS Anaerobic Blood Culture - Preliminary NO GROWTH AFTER 2 DAYS Med Orders - Current: Current Medications Acetaminophen (Acetaminophen 325 Mg Tab) 1,000 mg PO Q6HR PRN PRN Reason: Pain (Mild 1-3)/fever Last Admin: 03/21/21 17:47 Dose: 1,000 mg Documented by: Albuterol/Ipratropium (Albuterol/Ipratropium 3.0-0.5 Mg/3 Ml Neb Soln) 3 ml NEB Q6HR [facility] Last Admin: 03/23/21 10:54 Dose: 3 ml Documented by: Ceftriaxone Sodium (Ceftriaxone 1 Gm Vial) 1 gm IVPUSH Q24H [facility] Last Admin: 03/23/21 10:54 Dose: 1 gm Documented by: Cyanocobalamin (Cyanocobalamin (Vitamin B12) 500 Mcg Tab) 1,000 mcg PO DAILY [facility] Last Admin: 03/23/21 08:30 Dose: 1,000 mcg Documented by: Dextrose/Water (50% Dextrose In Water 50 Ml Syringe) 50 ml IVPUSH ASDIRECTED PRN PRN Reason: Hypoglycemia Enoxaparin Sodium (Enoxaparin 40 Mg/0.4 Ml Syringe) 40 mg SUBCUT Q24H [facility] Last Admin: 03/23/21 10:54 Dose: 40 mg Documented by: Glucagon (Glucagon,Human Recombinant 1 Mg Vial) 1 mg IM ASDIRECTED PRN PRN Reason: Hypoglycemia Hydrochlorothiazide (Hydrochlorothiazide 25 Mg Tab) 25 mg PO DAILY [facility] Last Admin: 03/23/21 08:35 Dose: 25 mg Documented by: Azithromycin 500 mg/ Sodium (Chloride) 250 mls @ 250 mls/hr IV Q24H [facility] Last Admin: 03/23/21 11:44 Dose: 250 mls/hr Documented by: Potassium Chloride/Sodium Chloride (Normal Saline With 20 Meq Kcl) 1,000 mls @ 100 mls/hr IV ASDIRECTED [facility] Last Admin: 03/23/21 08:50 Dose: 100 mls/hr Documented by: Sodium Chloride (Normal Saline) 100 mls @ 100 mls/hr IV ASDIRECTED [facility] Last Admin: 03/23/21 11:44 Dose: 100 mls/hr Documented by: Insulin Aspart (Insulin Aspart 100 Units/Ml 3 Ml Pen) 0 unit SUBCUT WITHMEALSANDBED [facility]; Protocol Last Admin: 03/23/21 11:42 Dose: 2 unit Documented by: Insulin Glargine (Insulin Glargine,Human Rec. Analog 100 Units/Ml 3 Ml Pen) 85 units SUBCUT BEDTIME [facility] Last Admin: 03/22/21 20:43 Dose: 85 unit Documented by: Lisinopril (Lisinopril 20 Mg Tab) 40 mg PO DAILY [facility] Last Admin: 03/23/21 08:35 Dose: 40 mg Documented by: Lorazepam (Lorazepam 0.5 Mg Tab) 1 mg PO TIDMEALS [facility] Last Admin: 03/23/21 11:43 Dose: 1 mg Documented by: Melatonin (Melatonin 3 Mg Tab) 3 mg PO BEDTIME PRN PRN Reason: Sleep Last Admin: 03/23/21 00:30 Dose: 3 mg Documented by: Metformin HCl (Metformin 500 Mg Tab) 1,000 mg PO BID@0800,1200 [facility] Last Admin: 03/23/21 11:43 Dose: 1,000 mg Documented by: Nicotine Polacrilex [Nicotine Lozenge] 2mg Own Med 2 mg PO Q2H PRN PRN Reason: smoking cessation Last Admin: 03/21/21 19:58 Dose: 2 mg Documented by: Liraglutide [Victoza ] 18 Mg/3 Ml Pen - Ptom 1.8 mg SUBCUT DAILY@2000 [facility] Last Admin: 03/22/21 20:44 Dose: 1.8 mg Documented by: Rosuvastatin Calcium (Rosuvastatin 10 Mg Tab) 20 mg PO BEDTIME [facility] Last Admin: 03/22/21 20:42 Dose: 20 mg Documented by: Tamsulosin HCl (Tamsulosin 0.4 Mg Cap.Er) 0.4 mg PO DAILY@1200 [facility] Last Admin: 03/23/21 11:43 Dose: 0.4 mg Documented by: Discontinued Medications Acetaminophen (Acetaminophen 500 Mg Tab) 1,000 mg PO ONETIME ONE Stop: 03/21/21 10:41 Last Admin: 03/21/21 11:18 Dose: 1,000 mg Documented by: Albuterol/Ipratropium (Albuterol/Ipratropium 3.0-0.5 Mg/3 Ml Neb Soln) 3 ml NEB ONETIME ONE Stop: 03/21/21 11:42 Last Admin: 03/21/21 11:49 Dose: 3 ml Documented by: Albuterol/Ipratropium (Albuterol/Ipratropium 3.0-0.5 Mg/3 Ml Neb Soln) 3 ml NEB Q4H PRN PRN Reason: Shortness Of Breath/wheezing Last Admin: 03/22/21 05:50 Dose: 3 ml Documented by: Ceftriaxone Sodium (Ceftriaxone 1 Gm Vial) 1 gm IVPUSH ONETIME ONE Stop: 03/21/21 11:28 Last Admin: 03/21/21 11:48 Dose: 1 gm Documented by: Sodium Chloride (Normal Saline) 1,000 mls @ 1,000 mls/hr IV BOLUS ONE; Protocol Stop: 03/21/21 11:31 Last Admin: 03/21/21 11:27 Dose: 1,000 mls/hr Documented by: Sodium Chloride (Normal Saline) 100 mls @ 125 mls/hr IV ASDIRECTED [facility] Last Admin: 03/21/21 15:34 Dose: 125 mls/hr Documented by: Sodium Chloride (Normal Saline) 1,000 mls @ 125 mls/hr IV ASDIRECTED [facility] Last Admin: 03/23/21 05:38 Dose: 125 mls/hr Documented by: Liraglutide [Victoza ] 18 Mg/3 Ml Pen - Ptom 1.8 mg SUBCUT DAILY [facility] Last Admin: 03/22/21 10:46 Dose: Not Given Documented by: Non-Formulary Medication (Lorazepam [Ativan]) 1 mg PO Q8H PRN PRN Reason: Anxiety Non-Formulary Medication (Nicotine Polacrilex [Nicotine Lozenge]) 2 mg BC Q2HR [facility] Potassium Chloride (Potassium Chloride 20 Meq Tab.Er) 40 meq PO ONETIME ONE Stop: 03/22/21 10:31 Last Admin: 03/22/21 11:30 Dose: 40 meq Documented by: Potassium Chloride (Potassium Chloride 20 Meq Tab.Er) 40 meq PO ONETIME ONE Stop: 03/23/21 08:46 Last Admin: 03/23/21 08:50 Dose: 40 meq Documented by: Sodium Chloride (Sodium Chloride 0.9% 10 Ml Syringe) 10 ml FLUSH Q8HR PRN PRN Reason: keep vein open - Exam General: Reports: Alert, Oriented, Cooperative, No Acute Distress Lungs: Reports: Clear to Auscultation, Normal Respiratory Effort Cardiovascular: Reports: Regular Rate, Regular Rhythm, No Murmurs GI/Abdominal Exam: Normal Bowel Sounds
== END 2021-03-23 17:46 | disposition home or self-care (01) | DRG 194 ==
LOC: KA.ED 10:28 → KA.MS 12:07 → UNDOADMIN 12:07
PROVIDERS: ADMIT Physician Assistant Medical; ATTEND Internal Medicine
DX: J18.9 Pneumonia, unspecified organism (principal); N17.9 Acute kidney failure, unspecified; H54.7 Unspecified visual loss; E78.00 Pure hypercholesterolemia, unspecified; E87.6 Hypokalemia; E11.9 Type 2 diabetes mellitus without complications; K44.9 Diaphragmatic hernia without obstruction or gangrene; Z79.4 Long term (current) use of insulin; F41.9 Anxiety disorder, unspecified; Z88.8 Allergy status to other drugs, medicaments and biological substances; N40.0 Benign prostatic hyperplasia without lower urinary tract symptoms; Z79.899 Other long term (current) drug therapy; E78.5 Hyperlipidemia, unspecified; I10 Essential (primary) hypertension; R09.02 Hypoxemia; Z20.822 Contact with and (suspected) exposure to COVID-19; Z87.19 Personal history of other diseases of the digestive system; K59.09 Other constipation; Z90.49 Acquired absence of other specified parts of digestive tract; Z98.890 Other specified postprocedural states
CPT/HCPCS: 36415; 71045; 80048; 80053; 81001; 82947; 83605; 84145; 84484; 85025; 87040; 93005; 94640; 96374; 97161-GP; 99223; 99233; 99238; 99285-25; A9270-GY; J0456; J0696; J1650; J1815-GY; J3480; J7030; J7050; J7620-GY; U0002

== ENCOUNTER 2022-02-12 07:54 | Day surgery (SDC) | payer MEDICARE, BC ==
[2022-02-12] MEDS ORDERED: Sodium Chloride 0.9% 10 ML Syringe FLUSH PRN (08:00)
[2022-02-12] MEDS: Sodium Chloride 0.9% 1,000 ML IV SCH (08:40)
[2022-02-12] MEDS ORDERED: Midazolam 1 MG/ML 2 ML SDV ONE (09:03)
[2022-02-12] MEDS ORDERED: Glycopyrrolate 0.2 MG/ML SDV ONE (09:03)
[2022-02-12] MEDS ORDERED: Propofol 200 MG/20 ML SDV ONE (09:03)
[2022-02-12] MEDS ORDERED: Ketamine 200 MG/20 ML MDV ONE (09:04)
[2022-02-12] MEDS ORDERED: Lidocaine 2% 5 ML SDV ONE (09:04)
[2022-02-12 10:48] VITALS: PULSE 95
[2022-02-12 12:44] VITALS: BP 134/68
== END 2022-02-12 11:24 | disposition home or self-care (01) ==
LOC: KA.SDS 07:54
PROVIDERS: ATTEND Surgery
DX: K57.30 Diverticulosis of large intestine without perforation or abscess without bleeding (principal); K21.00 Gastro-esophageal reflux disease with esophagitis, without bleeding; K29.50 Unspecified chronic gastritis without bleeding; K22.89 Other specified disease of esophagus; E11.9 Type 2 diabetes mellitus without complications; K21.9 Gastro-esophageal reflux disease without esophagitis; Z79.84 Long term (current) use of oral hypoglycemic drugs; Z79.899 Other long term (current) drug therapy; Z87.11 Personal history of peptic ulcer disease
CPT/HCPCS: 00813; 82947; J2250; J2704; J3490; J7030